=== PATIENT | male | born 1975 ===

== ENCOUNTER 2022-03-14 04:29 | Inpatient (IN) | payer MEDICAID, SELFPAY ==
[2022-03-14] VITALS (10 sets, daily range): BP systolic 122–154; BP diastolic 60–109; PULSE 75–93; RESP 14–20; TEMP 36.5–37; O2SAT 94–99; BMI 27.8
--- NOTE | ~2022-03-14 | CT_ITS ---
EXAMINATION: CT ABDOMEN AND PELVIS WITHOUT CONTRAST CLINICAL INFORMATION: Left flank pain COMPARISON: None TECHNIQUE: Multidetector volumetric imaging was performed from the superior aspect of the liver through the pubic symphysis. Sagittal and coronal reformatted images were obtained on the technologist's workstation. This CT examination was performed using dose optimization techniques as appropriate, variously including the following: *Automated exposure control *Adjustment of mA and/or kV according to patient size (this includes techniques or standardized protocols for targeted exams where dose is matched to indication/reason for exam; i.e. extremities or head) *Use of iterative reconstruction technique DLP: 587 mGy-cm FINDINGS: LUNG BASES: The visualized lung bases are unremarkable. LIVER, GALLBLADDER, AND BILIARY TREE: The liver is normal in size, shape, and attenuation. No focal hepatic lesion or biliary ductal dilatation is present. Stone in the gallbladder lumen. No wall thickening or pericholecystic fluid. PANCREAS: Unremarkable. SPLEEN: Unremarkable. ADRENAL GLANDS: Unremarkable. KIDNEYS AND URETERS: The kidneys are normal in size, shape, and attenuation. Mild left hydroureteronephrosis. There is a 0.3 cm calculus in the distal ureter approximately 2 cm proximal to the ureterovesicular junction. No additional renal calculi. No right hydronephrosis. BLADDER: Unremarkable. GASTROINTESTINAL TRACT: The small and large bowel are unremarkable. The appendix is unremarkable. ABDOMINAL WALL: No significant hernia is appreciated. LYMPH NODES: Normal. VASCULAR: Unremarkable. PELVIC VISCERA: The prostate and seminal vesicles are unremarkable. OSSEOUS STRUCTURES: No acute or suspicious osseous abnormality. Mild degenerative changes of the hips and spine. CT/CT abdomen pelvis wo con IMPRESSION: Mild left hydroureteronephrosis with a 0.3 cm obstructing distal ureteral calculus. Cholelithiasis. Fleischner guidelines were followed.
[2022-03-14 05:04] LABS: Basophils Absolute Auto 0.1 X10*3/uL (0.0-0.2); Basophils Percent Auto 0.6 % (0-2); Eosinophils Absolute Auto 0.3 X10*3/uL (0.0-0.4); Eosinophils Percent Auto 3.1 % (0-4); Hematocrit 41.7 % (42.0-52.0); Hemoglobin 14.3 g/dl (14.0-18.0); Imm Gran Abs Auto 0.02 X10*3/uL (0.00-0.03); Imm Gran Pct Auto 0.2 % (0.0-0.4); Lymphocytes Absolute Auto 2.7 X10*3/uL (1.2-4.9); Lymphocytes Percent Auto 32.4 % (20-40); MANUAL DIFF FLAG NO; Mean Corpuscular HGB Conc 34.3 g/dl (31.0-36.0); Mean Corpuscular Hemoglobin 28.8 pg (27.0-33.0); Mean Corpuscular Volume 83.9 fL (80.0-98.0); Mean Platelet Volume 8.6 fL (9.4-12.4); Monocytes Absolute Auto 0.6 X10*3/uL (0.1-1.2); Neutrophils Absolute Auto 4.7 x10*3/uL (2.0-8.3); Neutrophils Percent Auto 56.7 % (45-73); Platelet Count 277 X10*3/uL (160-400); Red Blood Count 4.97 X10*6/uL (4.60-5.80); White Blood Count 8.3 X10*3/uL (4.8-10.8)
--- NOTE | 2022-03-14 05:07 | ED_ITS ---
HPI - General Adult General Chief complaint: Back Pain/Injury Stated complaint: back pain Time Seen by Provider: 03/14/22 05:03 Source: patient and EMS Mode of arrival: EMS Limitations: no limitations History of Present Illness HPI narrative: Patient comes to the emergency room complaining of left flank pain for 2 hours. Patient states it woke him up. Patient is very sharp radiating towards the groin area. Patient complaining of nausea and vomiting. Patient has had kidney stones in the past. Patient denies hematuria or dysuria, no fever chills, no diarrhea. Related Data Allergies Allergy/AdvReac Type Severity Reaction Status Date / Time No Known Allergies Allergy Verified 03/14/22 05:06 Review of Systems Review of Systems: Constitutional : No Weight loss, No Fever, No Chills, No Night Sweats, No Fatigue, No Malaise ENT/Mouth : No Hearing loss, No Ear Pain, No Nasal Congestion, No Sinus Pain, No Hoarseness, No sore throat, No Rhinorrhea, No Swallowing Difficulty Eyes: No Eye Pain, No Swelling, No Redness, No Foreign Body, No Discharge, No Vision Changes Cardiovascular : No Chest Pain, No SOB, No Dyspnea on Exertion, No Orthopnea, No Edema, No Palpitations Respiratory : No Cough, No Sputum, No Wheezing, No Smoke Exposure, No Dyspnea Gastrointestinal : Complaining of nausea and vomiting, No Diarrhea, No Constipation, No abdominal Pain, No Hematochezia, No Melena Genitourinary : No Dysuria, No Urinary Frequency, No Hematuria, No Urinary Incontinence, No Urgency, complaining of sharp left Flank Pain, No Urinary Flow Changes, No Hesitancy Musculoskeletal : No joint pain, No Myalgias, No Joint Swelling Skin : No Skin Lesions, No rash Neuro : No Weakness, No Numbness, No Paresthesias, No Loss of Consciousness, No Dizziness, No Headache Psych : No Anxiety/Panic, No Depression, No SI/HI/AH/VH, No Social Issues, Heme/Lymph: No Bruising, No Bleeding,No Lymphadenopathy Endocrine : No Polyuria, No Polydipsia, No Temperature Intolerance [facility] Past Medical History Medical History (Updated 03/14/22 @ 07:12 by Chantale Madrid MD) Kidney stones Social History Social History Alcohol intake: never Patient Tobacco Use Status: Never used Tobacco Use of substances other than those prescribed or required for medical reasons: Yes Substance Use Type: Marijuana Substance Use Frequency: Occasionally Advance Directives: No Physical Exam ED Vital Signs: Vital Signs - 24 hr 03/14/22 04:45 03/14/22 05:08 03/14/22 05:40 Temperature Pulse Rate 83 84 Respiratory Rate 16 16 20 Blood Pressure 127/109 H 147/95 H Pulse Oximetry 96 97 03/14/22 06:21 03/14/22 06:39 03/14/22 06:51 Temperature 98.6 F Pulse Rate 79 93 Respiratory Rate 15 16 14 Blood Pressure 122/60 140/82 H Pulse Oximetry 95 99 BMI result Body Mass Index 27.8 Const Other: Appearance: Alert. Oriented X3. Looks very uncomfortable, diaphoretic Eyes: Pupils equal, round and reactive to light. ENT: Pharynx normal. Neck: Normal inspection. Neck supple. No lymph nodes noted. No crepitus CVS: Normal heart rate and rhythm. Pulses normal. Normal S1 and S2 Respiratory: No respiratory distress. Breath sounds normal. No Wheezing. No rales Abdomen: Soft and nontender. No rigidity. No distention. Back: Left flank pain, positive CVA Skin: Skin warm and dry. Diaphoretic. Normal skin turgor. Extremities: No lower extremity edema. No Lacerations. No Rash Neuro: Oriented X 3. No motor deficit. No sensory deficit. Moving all extremities. No slurred speech. CN 2 through 12 grossly intact Psych: calm, cooperative, normal affect Course Course Course Narrative: Labs and imaging pending. Patient likely passing a kidney stone. Patient given IV fluids, ketorolac and Zofran. Patient has had additionally a dose of morphine, 2 of Dilaudid. 2 L of fluid. Patient is still in significant pain. I discussed the patient with Dr. Cook, who recommends to have medicine admit the patient and he will consult. At this time, the urinalysis is pending pending, sign-out given to Dr. Barajas Medical Decision Making Lab Data Result diagrams: 03/14/22 06:04 03/14/22 06:04 Labs: Lab Results 03/14/22 03/14/22 03/14/22 Range/Units 04:56 04:56 06:04 WBC 8.3 10.4 (4.8-10.8) X10*3/uL RBC 4.97 4.77 (4.60-5.80) X10*6/uL Hgb 14.3 13.8 L (14.0-18.0) g/dl Hct 41.7 L 40.2 L (42.0-52.0) % MCV 83.9 84.3 (80.0-98.0) fL MCH 28.8 28.9 (27.0-33.0) pg MCHC 34.3 34.3 (31.0-36.0) g/dl RDW 12.0 11.9 (11.0-16.0) % Plt Count 277 265 (160-400) X10*3/uL MPV 8.6 L 8.6 L (9.4-12.4) fL Immature Gran % (Auto) 0.2 0.3 (0.0-0.4) % Neut % (Auto) 56.7 78.5 H (45-73) % Lymph % (Auto) 32.4 15.0 L (20-40) % [place] % (Auto) 7.0 4.8 (2-11) % Eos % (Auto) 3.1 1.0 (0-4) % Baso % (Auto) 0.6 0.4 (0-2) % Lymph # (Auto) 2.7 1.6 (1.2-4.9) X10*3/uL [place] # (Auto) 0.6 0.5 (0.1-1.2) X10*3/uL Eos # (Auto) 0.3 0.1 (0.0-0.4) X10*3/uL Baso # (Auto) 0.1 0.0 (0.0-0.2) X10*3/uL Abs Immat Gran (auto) 0.02 0.03 (0.00-0.03) X10*3/uL Absolute Neuts (auto) 4.7 8.2 (2.0-8.3) x10*3/uL Absolute Nucleated RBC 0.000 0.000 (0.0-0.012) X10*3/uL Nucleated RBC % (auto) 0.0 0.0 (0.0-0.2) /100WBC Sodium 140 (135-145) mmol/L Potassium 3.8 (3.3-5.1) mmol/L Chloride 106 (96-108) mmol/L Carbon Dioxide 27 (22-29) mmol/L Anion Gap 11 L (12-20) BUN 20 H (9-16) mg/dL Creatinine 1.30 (0.5-1.4) mg/dL Estim Creat Clear Calc 80.0 Estimated GFR 59 Random Glucose 114 (60-115) mg/dL Calcium 9.2 (8.4-10.2) mg/dL Total Bilirubin 0.3 (0.0-1.0) mg/dL Direct Bilirubin (0.0-0.5) mg/dL AST 21 (5-37) U/L ALT 35 (0-40) U/L Alkaline Phosphatase 73 (39-117) U/L Total Protein 6.8 (6.5-8.0) g/dL Albumin 4.4 (3.5-5.0) g/dL 03/14/22 Range/Units 06:04 WBC (4.8-10.8) X10*3/uL RBC (4.60-5.80) X10*6/uL Hgb (14.0-18.0) g/dl Hct (42.0-52.0) % MCV (80.0-98.0) fL MCH (27.0-33.0) pg MCHC (31.0-36.0) g/dl RDW (11.0-16.0) % Plt Count (160-400) X10*3/uL MPV (9.4-12.4) fL Immature Gran % (Auto) (0.0-0.4) % Neut % (Auto) (45-73) % Lymph % (Auto) (20-40) % [place] % (Auto) (2-11) % Eos % (Auto) (0-4) % Baso % (Auto) (0-2) % Lymph # (Auto) (1.2-4.9) X10*3/uL [place] # (Auto) (0.1-1.2) X10*3/uL Eos # (Auto) (0.0-0.4) X10*3/uL Baso # (Auto) (0.0-0.2) X10*3/uL Abs Immat Gran (auto) (0.00-0.03) X10*3/uL Absolute Neuts (auto) (2.0-8.3) x10*3/uL Absolute Nucleated RBC (0.0-0.012) X10*3/uL Nucleated RBC % (auto) (0.0-0.2) /100WBC Sodium 140 (135-145) mmol/L Potassium 4.4 (3.3-5.1) mmol/L Chloride 107 (96-108) mmol/L Carbon Dioxide 27 (22-29) mmol/L Anion Gap 10 L (12-20) BUN 20 H (9-16) mg/dL Creatinine 1.27 (0.5-1.4) mg/dL Estim Creat Clear Calc 81.9 Estimated GFR > 60 Random Glucose 124 H (60-115) mg/dL Calcium 8.9 (8.4-10.2) mg/dL Total Bilirubin 0.3 (0.0-1.0) mg/dL Direct Bilirubin 0.2 (0.0-0.5) mg/dL AST 19 (5-37) U/L ALT 32 (0-40) U/L Alkaline Phosphatase 68 (39-117) U/L Total Protein 6.4 L (6.5-8.0) g/dL Albumin 4.2 (3.5-5.0) g/dL Discharge Plan Discharge Clinical Impression: Kidney stones Patient Disposition: Admitted As Inpatient
[2022-03-14 05:31] LABS: Alanine Aminotransferase 35 U/L (0-40); Albumin Level 4.4 g/dL (3.5-5.0); Alkaline Phosphatase 73 U/L (39-117); Anion Gap 11 (12-20); Aspartate Amino Transferase 21 U/L (5-37); Bilirubin Total 0.3 mg/dL (0.0-1.0); Blood Urea Nitrogen 20 mg/dL (9-16); Calcium 9.2 mg/dL (8.4-10.2); Carbon Dioxide 27 mmol/L (22-29); Chloride 106 mmol/L (96-108); Estimated Glomerular Filt Rate 59; Glucose Random 114 mg/dL (60-115); Potassium 3.8 mmol/L (3.3-5.1); Sodium 140 mmol/L (135-145); Total Protein 6.8 g/dL (6.5-8.0)
[2022-03-14] MEDS: Ketorolac Tromethamine 30 MG/ML VIAL IVPUSH (05:40)
[2022-03-14] MEDS: Morphine Sulfate 4 MG/ML CARTRIDGE IVPUSH (05:40)
[2022-03-14] MEDS: ondansetron HCL 4 MG/2 ML VIAL IVPUSH ×2 (05:41→18:50)
[2022-03-14] MEDS: 0.9 % Sodium Chloride 1,000 ML 999 ML IVCONT ×2 (05:41→07:27)
[2022-03-14 06:08] LABS: Basophils Percent Auto 0.4 % (0-2); Eosinophils Absolute Auto 0.1 X10*3/uL (0.0-0.4); Hematocrit 40.2 % (42.0-52.0); Hemoglobin 13.8 g/dl (14.0-18.0); Imm Gran Abs Auto 0.03 X10*3/uL (0.00-0.03); Imm Gran Pct Auto 0.3 % (0.0-0.4); Lymphocytes Absolute Auto 1.6 X10*3/uL (1.2-4.9); MANUAL DIFF FLAG NO; Mean Corpuscular HGB Conc 34.3 g/dl (31.0-36.0); Mean Corpuscular Hemoglobin 28.9 pg (27.0-33.0); Mean Corpuscular Volume 84.3 fL (80.0-98.0); Mean Platelet Volume 8.6 fL (9.4-12.4); Monocytes Absolute Auto 0.5 X10*3/uL (0.1-1.2); Monocytes Percent Auto 4.8 % (2-11); Neutrophils Absolute Auto 8.2 x10*3/uL (2.0-8.3); Neutrophils Percent Auto 78.5 % (45-73); Platelet Count 265 X10*3/uL (160-400); Red Blood Count 4.77 X10*6/uL (4.60-5.80); Red Cell Distribution Width 11.9 % (11.0-16.0); White Blood Count 10.4 X10*3/uL (4.8-10.8)
[2022-03-14] MEDS: Prochlorperazine Edisylate 10 MG/2 ML VIAL IVPUSH (06:21)
[2022-03-14] MEDS: HYDROmorphone HCl 1 MG/ML SYRINGE IVPUSH ×5 (06:21→23:10)
[2022-03-14 06:28] LABS: Alanine Aminotransferase 32 U/L (0-40); Albumin Level 4.2 g/dL (3.5-5.0); Alkaline Phosphatase 68 U/L (39-117); Anion Gap 10 (12-20); Aspartate Amino Transferase 19 U/L (5-37); Bilirubin Direct 0.2 mg/dL (0.0-0.5); Bilirubin Total 0.3 mg/dL (0.0-1.0); Blood Urea Nitrogen 20 mg/dL (9-16); Calcium 8.9 mg/dL (8.4-10.2); Carbon Dioxide 27 mmol/L (22-29); Chloride 107 mmol/L (96-108); Creatinine Clr Calc Pharmacy 81.9; Estimated Glomerular Filt Rate > 60; Glucose Random 124 mg/dL (60-115); Potassium 4.4 mmol/L (3.3-5.1); Sodium 140 mmol/L (135-145); Total Protein 6.4 g/dL (6.5-8.0)
[2022-03-14 08:19] LABS: Appearance Urine CLEAR; Color Urine STRAW; Glucose Urine UA NEG (NEG); Leukocyte Esterase Urine NEG (NEG); Nitrite Urine NEG (NEG); Specific Gravity - Urine 1.025 (1.005-1.025); UACC Culture Trigger NO; Urine Blood 1+ (NEG); Urine Ketones NEG (NEG); Urine Protein NEG (NEG-TRACE)
[2022-03-14 08:27] LABS: Squamous Epithelial Cell Urine TRACE /LPF
[2022-03-14 08:29] LABS: RBC Urine 0-2 /HPF (0); WBC Urine 0-2 /HPF (0-4)
[2022-03-14 09:20] LABS: COVID-19 Test Negative (Negative)
--- NOTE | 2022-03-14 09:35 | P.HPHOSP_ITS ---
History of Present Illness Date of Service: 03/14/22 Chief Complaint: flank pain This is a 46 year old male who endorses no significant PMH, presents to the ED with complaints of sudden onset L flank pain which began on the night prior to arrival. He reports, that his pain woke him up from sleep. He reports 1 prior episode of kidney stones for which he did not seek medical attention. He reports that it passed on its own. He reports that his pain during this epsidoe is significantly worse. Rates it as a 10/10 and down to 6-7/10 after analgesics. He denies any hematuria. Denies any dysuria/frequency/urgency. Denies any fevers or chills. No FH is renal stones. Work in the ED showed a 3mm obstructing stone at the disal uretral calculus causing mild L hydro. He was given 4 rounds of IV analgesics (opioid + non- opioid) and a L of IVF + 2 rounds of IV anti-emetics. His pain improved, but did not resolve. Case was d/w Urology who recommended admission to medicine. Review of Systems Review of Systems: negative except [facility] Medical History Kidney stones Family History (Updated 03/14/22 @ 09:42 by Vel Maldonado MD) Mother Colon cancer Surgical History (Updated 03/14/22 @ 09:43 by Vel Maldonado MD) History of surgery on lower extremity Social History Alcohol intake: never Patient Tobacco Use Status: Never used Tobacco Use of substances other than those prescribed or required for medical reasons: Yes Substance Use Type: Marijuana Substance Use Frequency: Occasionally Advance Directives: No Meds Allergies Allergy/AdvReac Type Severity Reaction Status Date / Time No Known Allergies Allergy Verified 03/14/22 05:06 Active Medications: Current Medications Acetaminophen (Acetaminophen 325 Mg Tablet) 650 mg PO Q6H PRN PRN Reason: Pain, Mild (Pain Scale 1-3) Hydromorphone HCl (Hydromorphone Hcl 1 Mg/Ml Syringe) 1 mg IVPUSH Q4H PRN; Protocol PRN Reason: Pain, Severe (Pain Scale 7-10) Dextrose/Sodium Chloride (D5ns) 1,000 mls @ 100 mls/hr IVCONT .Q10H [facility] Ondansetron HCl (Ondansetron Hcl 4 Mg/2 Ml Vial) 4 mg IVPUSH Q8H PRN PRN Reason: Nausea and Vomiting Pharmacy Consult (Consult Rx Perform Med Rec) 1 each MISCELLANE ONCE PRN PRN Reason: Consult order Sodium Chloride (0.9 % Sodium Chloride Flush 3 Ml Syringe) 3 ml IVFLUSH QSHIFT [facility] Tamsulosin HCl (Tamsulosin Hcl 0.4 Mg Capsule) 0.8 mg PO ONCE ONE Stop: 03/14/22 09:33 Physical Exam Vital Signs and Narrative: Vital Signs: Last Vital Signs Temp 97.8 F 03/14/22 08:24 Pulse 75 03/14/22 08:24 Resp 17 03/14/22 08:24 BP 134/63 03/14/22 08:24 Pulse Ox 94 03/14/22 08:24 BMI result Body Mass Index 27.8 Const: Other: Constitutional - Awake and Alert, in mild pain Eyes - PERRLA, EOMI Cardiovascular - S1S2, RRR, No edema Respiratory - Normal lung expansion, Normal respiratory effort, No respiratory distress, CTA bilaterally Gastrointestinal - NT / ND; +BS; No rebound or guarding - L CVA TTP Extremities - no calf tenderness bilaterally, no swelling Musculoskeletal - Normal inspection, normal ROM Skin - Warm/Dry Neurological - Alert & oriented x3, No focal deficit Psychological - Appropriate affect Results Labs CBC and Chem 7: 03/14/22 06:04 03/14/22 06:04 Labs: Laboratory Results - last 24 hr 03/14/22 03/14/22 03/14/22 04:56 04:56 06:04 MCV 83.9 84.3 MCH 28.8 28.9 MCHC 34.3 34.3 RDW 12.0 11.9 Plt Count 277 265 MPV 8.6 L 8.6 L Immature Gran % (Auto) 0.2 0.3 Neut % (Auto) 56.7 78.5 H Lymph % (Auto) 32.4 15.0 L [place] % (Auto) 7.0 4.8 Eos % (Auto) 3.1 1.0 Baso % (Auto) 0.6 0.4 Lymph # (Auto) 2.7 1.6 [place] # (Auto) 0.6 0.5 Eos # (Auto) 0.3 0.1 Baso # (Auto) 0.1 0.0 Abs Immat Gran (auto) 0.02 0.03 Absolute Neuts (auto) 4.7 8.2 Absolute Nucleated RBC 0.000 0.000 Nucleated RBC % (auto) 0.0 0.0 Anion Gap 11 L Estim Creat Clear Calc 80.0 Estimated GFR 59 Random Glucose 114 Calcium 9.2 Total Bilirubin 0.3 Direct Bilirubin AST 21 ALT 35 Alkaline Phosphatase 73 Total Protein 6.8 Albumin 4.4 Urine Color Urine Appearance Urine pH Ur Specific [place] Urine Protein Urine Glucose (UA) Urine Ketones Urine Blood Urine Nitrite Ur Leukocyte Esterase Urine RBC Urine WBC Ur Squamous Epith Cells Urine Bacteria COVID-19 (PHAN) COVID-19 Clin Com 03/14/22 03/14/22 03/14/22 06:04 08:14 08:44 MCV MCH MCHC RDW Plt Count MPV Immature Gran % (Auto) Neut % (Auto) Lymph % (Auto) [place] % (Auto) Eos % (Auto) Baso % (Auto) Lymph # (Auto) [place] # (Auto) Eos # (Auto) Baso # (Auto) Abs Immat Gran (auto) Absolute Neuts (auto) Absolute Nucleated RBC Nucleated RBC % (auto) Anion Gap 10 L Estim Creat Clear Calc 81.9 Estimated GFR > 60 Random Glucose 124 H Calcium 8.9 Total Bilirubin 0.3 Direct Bilirubin 0.2 AST 19 ALT 32 Alkaline Phosphatase 68 Total Protein 6.4 L Albumin 4.2 Urine Color STRAW Urine Appearance CLEAR Urine pH 6.0 Ur Specific [place] 1.025 Urine Protein NEG Urine Glucose (UA) NEG Urine Ketones NEG Urine Blood 1+ H Urine Nitrite NEG Ur Leukocyte Esterase NEG Urine RBC 0-2 Urine WBC 0-2 Ur Squamous Epith Cells TRACE Urine Bacteria NONE COVID-19 (PHAN) Negative COVID-19 Clin Com See Note Imaging Radiologist's Impressions: Impressions Abdomen/Pelvis CT 03/14/22 05:49 IMPRESSION: Mild left hydroureteronephrosis with a 0.3 cm obstructing distal ureteral calculus. Cholelithiasis. Fleischner guidelines were followed. Assessment and Plan (1) Kidney stones: Status: Acute Plan This is a 46 yo M with no significant PMH (with the exeption of 1 prior episode of nephrolithiasis) who presents to the ED with sudden onset L Flank pain and is found to have a 3mm obstructing stone. He has not attained adequate pain control and hence will be admitted for further treatment. 1. L Nephrolithiasis, 3 mm causing mild obstruction/hydronephrosis but given size, may pass on its own will involve urology in case stone retrieval procedure is needed; will keep NPO after MN Give a dose of flomax now IV dilaudid q4 hours; transition to oral analgesics as soon as pain is adequately controlled Full Code DVT pptx, low risk -- early ambulation Quality Stroke Does the patient have a stroke diagnosis?: No VTE Prior VTE?: No VTE Risk Level:: Medical - low VTE Device Contraindication: Treatment Not Indicated VTE Drug Contraindication: Treatment Not Indicated
[2022-03-14] MEDS: Tamsulosin HCL 0.4 MG CAPSULE 0.8 MG PO (10:45)
[2022-03-14] MEDS: Lactated Ringers 1,000 ML 100 ML IVCONT ×2 (10:45→19:32)
--- NOTE | 2022-03-14 11:41 | PC.NURSE ---
rn to rn report given to javier hartman aware of plan of care for transfer to overflow unit.
--- NOTE | 2022-03-14 12:21 | PC.NURSE ---
RN assumed care at 12pm in over flow unit. Pt alert and oriented x4, calm and cooperative. Pt states 5/10 pain after receiving pain meds, states pain is tolerable . Denies nausea. Pt ambulated from stretcher to hospital bed and had steady gait. IV intact running LR at 100mls/hr now. Pt resting in hospital bed talking on the phone now.
[2022-03-14] MEDS: Acetaminophen 325 MG TABLET 650 MG PO (14:22)
[2022-03-14] MEDS: 0.9 % Sodium Chloride Flush 3 ML SYRINGE IVFLUSH (23:10)
[2022-03-15] VITALS: BP 143/81; PULSE 75; RESP 18; TEMP 36.8; O2SAT 95
[2022-03-15] MEDS: ondansetron HCL 4 MG/2 ML VIAL IVPUSH ×3 (04:09→20:42)
[2022-03-15] MEDS: HYDROmorphone HCl 1 MG/ML SYRINGE IVPUSH ×6 (04:10→23:10)
[2022-03-15 07:27] VITALS: BP 135/74; PULSE 76; RESP 20; TEMP 37.1; O2SAT 96
[2022-03-15 08:03] LABS: Anion Gap 9 (12-20); Blood Urea Nitrogen 16 mg/dL (9-16); Calcium 8.7 mg/dL (8.4-10.2); Carbon Dioxide 26 mmol/L (22-29); Chloride 107 mmol/L (96-108); Estimated Glomerular Filt Rate 46; Glucose Random 111 mg/dL (60-115); Potassium 4.2 mmol/L (3.3-5.1); Sodium 138 mmol/L (135-145)
[2022-03-15] MEDS: Lactated Ringers 1,000 ML 100 ML IVCONT ×2 (09:32→20:39)
--- NOTE | 2022-03-15 10:02 | MHC.CM.PN ---
CM ATTEMPTED TO MEET WITH PT WHO WAS WITH HOSPITALIST LEXY TO REVISIT
[2022-03-15] MEDS: Acetaminophen 325 MG TABLET 650 MG PO ×2 (12:49→22:16)
--- NOTE | 2022-03-15 13:02 | HO.PM.IMPN ---
Subjective Subjective Date of Service: 03/15/22 Interval History: cc: garland tflank pain interval history:stil present Cardiovascular Cardiovascular: Reports no additional cardiovascular complaints Respiratory Respiratory: Reports no additional respiratory complaints Physical Exam Vital Signs: Vital Signs: Last Vital Signs Temp 98.7 F 03/15/22 07:27 Pulse 76 03/15/22 07:27 Resp 20 03/15/22 07:27 BP 135/74 03/15/22 07:27 Pulse Ox 96 03/15/22 07:27 BMI result Body Mass Index 27.8 General: AO X 3, in pain Resp: CTA bilateral, no accessory muscles used CVS: S1,S2,RRR GI: soft, non tender, non distended Neuro: motor grossly intact, alert Psych: appropriate affect, appropriate insight Objective Data Active Medications Acetaminophen (Acetaminophen 325 Mg Tablet) 650 mg PO Q6H PRN PRN Reason: Pain, Mild (Pain Scale 1-3) Last Admin: 03/15/22 12:49 Dose: 650 mg Documented by: PAULIE Hydromorphone HCl (Hydromorphone Hcl 1 Mg/Ml Syringe) 1 mg IVPUSH Q4H PRN; Protocol PRN Reason: Pain, Severe (Pain Scale 7-10) Last Admin: 03/15/22 12:42 Dose: 1 mg Documented by: DEBI Lactated Ringer's (Lr) 1,000 mls @ 100 mls/hr IVCONT .Q10H [facility] Last Admin: 03/15/22 09:32 Dose: 100 mls/hr Documented by: PAULIE Ondansetron HCl (Ondansetron Hcl 4 Mg/2 Ml Vial) 4 mg IVPUSH Q8H PRN PRN Reason: Nausea and Vomiting Last Admin: 03/15/22 12:42 Dose: 4 mg Documented by: DEBI Pharmacy Consult (Consult Rx Perform Med Rec) 1 each MISCELLANE ONCE PRN PRN Reason: Consult order Sodium Chloride (0.9 % Sodium Chloride Flush 3 Ml Syringe) 3 ml IVFLUSH QSHIFT [facility] Last Admin: 03/15/22 09:17 Dose: Not Given Documented by: PAULIE Non-Admin Reason: IV Running Labs CBC & Chem 7: 03/14/22 06:04 03/15/22 07:17 Labs: Laboratory Results - last 24 hr 03/15/22 07:17 Anion Gap 9 L Estim Creat Clear Calc 65.0 Estimated GFR 46 Random Glucose 111 Calcium 8.7 Assessment and Plan (1) Kidney stones: Status: Acute Plan 46M with left flank pain left hydronephrosis due to 0.3cm stone should pass with ivf, plan for procedure tomororw if doesnt pain control reason for continued hospitalization: requriing ivf and pain control Quality Stroke Does the patient have a stroke diagnosis?: No VTE Prior VTE?: No VTE Risk Level:: Medical - low VTE Device Contraindication: Treatment Not Indicated VTE Drug Contraindication: Treatment Not Indicated
--- NOTE | 2022-03-15 15:03 | PC.NURSE ---
Patient alert and oriented x3, VSS. Patient c/o 10/10 L flank pain throughout shift with associated nausea. Given Dilaudid and zofran per EMAR, with some relief. Patient aware of plan of care and verbalized understanding. Lung sounds clear, +bowel sounds. All needs met at this time.
[2022-03-15 16:29] VITALS: BP 147/77; PULSE 75; RESP 18; TEMP 37.1; O2SAT 97
--- NOTE | 2022-03-15 17:38 | PC.NURSE ---
patient had c/o nausea when he gets the pain medication, his zofran is q8h and he was unable to have additional zofran, dr. lambert was notified and asked if we could change the zofran order to q4h or to obtain an additional medication to alternate with. Dr. Lambert asked we take a telephone order for 5mg reglan q8h iv prn. will add this as a telephone order.
[2022-03-15] MEDS: Metoclopramide HCl 10 MG/2 ML VIAL 5 MG IVPUSH ×2 (18:07→23:11)
[2022-03-15] MEDS: Fluticasone Propionate Nasal 16 GM SPRAY 1 SPRAY NOSTRIL-B (20:38)
[2022-03-15 22:19] VITALS: BP 154/86; PULSE 86; RESP 16; TEMP 37.4
[2022-03-15] MEDS: 0.9 % Sodium Chloride Flush 3 ML SYRINGE IVFLUSH (23:11)
[2022-03-15] MEDS: Bismuth Subsalicylate Liquid 524 MG/30 ML ORAL.SUSP 262 MG PO (23:11)
[2022-03-15 23:49] VITALS: BP 129/69; PULSE 80; RESP 14; TEMP 36.9; O2SAT 95
[2022-03-16] VITALS (10 sets, daily range): BP systolic 129–182; BP diastolic 67–95; PULSE 62–102; RESP 14–17; TEMP 36.5–37.1; O2SAT 94–99; BMI 27.8
[2022-03-16] MEDS: HYDROmorphone HCl 1 MG/ML SYRINGE IVPUSH (05:03)
[2022-03-16] MEDS: ondansetron HCL 4 MG/2 ML VIAL IVPUSH (05:03)
[2022-03-16] MEDS: Lactated Ringers 1,000 ML 100 ML IVCONT (05:04)
[2022-03-16] MEDS: Acetaminophen 325 MG TABLET 650 MG PO ×2 (06:32→14:57)
[2022-03-16 07:59] LABS: Hematocrit 37.8 % (42.0-52.0); Hemoglobin 12.8 g/dl (14.0-18.0); Mean Corpuscular HGB Conc 33.9 g/dl (31.0-36.0); Mean Corpuscular Hemoglobin 28.8 pg (27.0-33.0); Mean Corpuscular Volume 84.9 fL (80.0-98.0); Mean Platelet Volume 8.9 fL (9.4-12.4); Platelet Count 244 X10*3/uL (160-400); Red Blood Count 4.45 X10*6/uL (4.60-5.80); Red Cell Distribution Width 11.9 % (11.0-16.0); White Blood Count 8.8 X10*3/uL (4.8-10.8)
[2022-03-16] MEDS: HYDROmorphone HCl 1 MG/ML SYRINGE 1.5 MG IVPUSH ×3 (08:05→12:11)
[2022-03-16 08:12] LABS: Anion Gap 12 (12-20); Blood Urea Nitrogen 15 mg/dL (9-16); Calcium 8.8 mg/dL (8.4-10.2); Carbon Dioxide 28 mmol/L (22-29); Chloride 103 mmol/L (96-108); Creatinine Clr Calc Pharmacy 66.3; Estimated Glomerular Filt Rate 47; Glucose Fasting 91 mg/dL (60-99); Potassium 4.7 mmol/L (3.3-5.1); Sodium 138 mmol/L (135-145)
--- NOTE | 2022-03-16 09:14 | MHC.CM.PN ---
PATIENT LIVES WITH HE IS FULLY INDEPENDENT NO DME OR VNA SERVICES HE HAS NOT BEEN VACCINATED AGAINST COVID-19 HE IS EXPECTED FOR SURGICAL INTERVENTION TODAY AND PLAN WILL BE HOME - SELF CARE [facility]EL Hwang, IN ROOM AND WILL PROVIDE TRANSPORT HOME IF NEEDED. LARA 03/16 IN CHART
--- NOTE | 2022-03-16 10:41 | P.PNIM_ITS ---
Subjective Subjective Date of Service: 03/16/22 Interval History: cc: flank pain interval history:unchanged Cardiovascular Cardiovascular: Reports no additional cardiovascular complaints Respiratory Respiratory: Reports no additional respiratory complaints Physical Exam Vital Signs: Vital Signs: Last Vital Signs Temp 98.0 F 03/16/22 08:09 Pulse 84 03/16/22 08:09 Resp 16 03/16/22 08:09 BP 169/89 H 03/16/22 08:09 Pulse Ox 98 03/16/22 08:09 BMI result Body Mass Index 27.8 General: AO X 3, in pain Resp: CTA bilateral, no accessory muscles used CVS: S1,S2,RRR GI: soft, non tender, non distended Neuro: motor grossly intact, alert Psych: appropriate affect, appropriate insight Objective Data Active Medications Acetaminophen (Acetaminophen 325 Mg Tablet) 650 mg PO Q6H PRN PRN Reason: Pain, Mild (Pain Scale 1-3) Last Admin: 03/16/22 06:32 Dose: 650 mg Documented by: ROMEO Fluticasone Propionate (Fluticasone Propionate Nasal 16 Gm [place]) 1 spray NOSTRIL-B BID [facility] Last Admin: 03/16/22 08:08 Dose: Not Given Documented by: NELLA Non-Admin Reason: Med Not Available Hydromorphone HCl (Hydromorphone Hcl 1 Mg/Ml Syringe) 1.5 mg IVPUSH Q2H PRN; Protocol PRN Reason: Pain, Severe (Pain Scale 7-10) Last Admin: 03/16/22 09:59 Dose: 1.5 mg Documented by: NELLA Lactated Ringer's (Lr) 1,000 mls @ 100 mls/hr IVCONT .Q10H [facility] Last Admin: 03/16/22 05:04 Dose: 100 mls/hr Documented by: ROMEO Metoclopramide HCl (Metoclopramide Hcl 10 Mg/2 Ml Vial) 5 mg IVPUSH Q8H PRN PRN Reason: Nausea Last Admin: 03/15/22 23:11 Dose: 5 mg Documented by: ROMEO Comments: Dr. Anaya said OK to give early. Ondansetron HCl (Ondansetron Hcl 4 Mg/2 Ml Vial) 4 mg IVPUSH Q8H PRN PRN Reason: Nausea and Vomiting Last Admin: 03/16/22 05:03 Dose: 4 mg Documented by: ROMEO Pharmacy Consult (Consult Rx Perform Med Rec) 1 each MISCELLANE ONCE PRN PRN Reason: Consult order Sodium Chloride (0.9 % Sodium Chloride Flush 3 Ml Syringe) 3 ml IVFLUSH QSHIFT [facility] Last Admin: 03/16/22 06:59 Dose: Not Given Documented by: NELLA Non-Admin Reason: IV Running Labs CBC & Chem 7: 03/16/22 06:53 03/16/22 06:53 Labs: Laboratory Results - last 24 hr 03/16/22 03/16/22 06:53 06:53 MCV 84.9 MCH 28.8 MCHC 33.9 RDW 11.9 Plt Count 244 MPV 8.9 L Absolute Nucleated RBC 0.000 Nucleated RBC % (auto) 0.0 Anion Gap 12 Estim Creat Clear Calc 66.3 Estimated GFR 47 Fasting Glucose 91 Calcium 8.8 Assessment and Plan (1) Kidney stones: Status: Acute Plan 46M with left flank pain left hydronephrosis due to 0.3cm stone did not pass plan for procedure today pain control MARGARITO continue ivf, monitor reason for continued hospitalization: requriing ivf and pain control Quality Stroke Does the patient have a stroke diagnosis?: No VTE Prior VTE?: No VTE Risk Level:: Medical - low VTE Device Contraindication: Treatment Not Indicated VTE Drug Contraindication: Treatment Not Indicated
--- NOTE | 2022-03-16 13:03 | P.CNUR_ITS ---
History of Present Illness Consult details Consult date: 03/15/22 Narrative: Gabriel is a pleasant male Presents to hospital with 1 week history left-sided flank pain Had done yard work at the weekend and was concerned he may have muscular injury Imaging shows 3 mm distal left ureteric stone with mild hydroureteronephrosis Creatinine 1.6 Can manage conservatively and if stone does not pass the next 24-36 hours would recommend intervention Review of Systems Constitutional: Constitutional: Reports as per HPI and Reports no additional constitutional complaints Cardiovascular: Cardiovascular: Reports as per HPI and Reports no additional cardiovascular complaints Respiratory: Respiratory: Reports as per HPI and Reports no additional respiratory complaints Gastrointestinal: Gastrointestinal: Reports as per HPI and Reports no additional gastrointestinal complaints Genitourinary: Genitourinary: Reports as per HPI Musculoskeletal: Musculoskeletal: Reports no additional musculoskeletal complaints and Reports as per HPI Neurologic: Reports system reviewed and no additional complaints, except as documented and Reports as per HPI [facility] Past Medical History Medical History Kidney stones Family History Family History (Updated 03/14/22 @ 09:42 by Vel Maldonado MD) Mother Colon cancer Surgical History Surgical History (Updated 03/14/22 @ 09:43 by Vel Maldonado MD) History of surgery on lower extremity Social History Social History Household Members: Spouse Housing: House Do you presently have visiting nurse or other home services: No Alcohol intake: never Patient Tobacco Use Status: Never used Tobacco Use of substances other than those prescribed or required for medical reasons: Yes Substance Use Type: Marijuana Substance Use Frequency: Occasionally Last Used Substance: Days (ago) Currently Displaying Signs/Symptoms of Drug Intoxication Withdrawal: No Any prior treatment program specific to substance use: No Have you been hit, kicked, punched, or otherwise hurt by someone within the past year? If so, by whom?: No Do you feel safe in your current relationship?: Yes Is there a partner from a previous relationship who is making you feel unsafe now?: No Are you made to feel afraid or neglected: No Advance Directives: No Do you have thoughts of harming others: None Do you have a plan to hurt others: No Plan Recently lost weight without trying: No How much weight loss: Not applicable Eating poorly because of decreased appetite: No Nutrition screen score: 0 Nutrition Risks: No Nutritional Risk Poor oral hygiene: No service: No Current occupational status: employed Meds Allergies Allergy/AdvReac Type Severity Reaction Status Date / Time No Known Allergies Allergy Verified 03/14/22 05:06 Active Medications: Current Medications Acetaminophen (Acetaminophen 325 Mg Tablet) 650 mg PO Q6H PRN PRN Reason: Pain, Mild (Pain Scale 1-3) Last Admin: 03/16/22 06:32 Dose: 650 mg Documented by: Fluticasone Propionate (Fluticasone Propionate Nasal 16 Gm [place]) 1 spray NOSTRIL-B BID [facility] Last Admin: 03/16/22 08:08 Dose: Not Given Documented by: Hydromorphone HCl (Hydromorphone Hcl 1 Mg/Ml Syringe) 1.5 mg IVPUSH Q2H PRN; Protocol PRN Reason: Pain, Severe (Pain Scale 7-10) Last Admin: 03/16/22 12:11 Dose: 1.5 mg Documented by: Lactated Ringer's (Lr) 1,000 mls @ 100 mls/hr IVCONT .Q10H [facility] Last Admin: 03/16/22 05:04 Dose: 100 mls/hr Documented by: Metoclopramide HCl (Metoclopramide Hcl 10 Mg/2 Ml Vial) 5 mg IVPUSH Q8H PRN PRN Reason: Nausea Last Admin: 03/15/22 23:11 Dose: 5 mg Documented by: Ondansetron HCl (Ondansetron Hcl 4 Mg/2 Ml Vial) 4 mg IVPUSH Q8H PRN PRN Reason: Nausea and Vomiting Last Admin: 03/16/22 05:03 Dose: 4 mg Documented by: Pharmacy Consult (Consult Rx Perform Med Rec) 1 each MISCELLANE ONCE PRN PRN Reason: Consult order Sodium Chloride (0.9 % Sodium Chloride Flush 3 Ml Syringe) [address] [facility] Last Admin: 03/16/22 06:59 Dose: Not Given Documented by: Home Medications Medication Instructions Recorded Confirmed Last Taken Type ibuprofen 200 mg tablet (Advil) 400 mg PO Q6H PRN 03/14/22 03/14/22 Unknown History Physical Exam Vital Signs: Vital Signs: Last Vital Signs Temp 98.0 F 03/16/22 08:09 Pulse 84 03/16/22 08:09 Resp 16 03/16/22 08:09 BP 169/89 H 03/16/22 08:09 Pulse Ox 98 03/16/22 08:09 BMI result Body Mass Index 27.8 Const: General: cooperative, healthy appearing, comfortable and no acute distress Orientation/consciousness: patient oriented x3 HEENT: Face and sinus: Yes normal facial exam Mouth: moist mucous membranes Neck: Neck: Yes normal visual inspection, Yes full ROM and Yes trachea midline Chest: Chest palpation & inspection: normal inspection of the chest Resp: Effort & Inspection: normal respiratory effort, able to speak in complete sentences and no respiratory distress GI: Inspection: Yes normal to inspection Back/Spine/Pelvis: Cervical Spine: normal cervical lordosis Thoracic/Lumbar Spine: thoracic and lumbar spine normal to inspection Skin: General skin exam: no rashes or lesions noted Neuro: General: patient oriented x3, tone normal and moves all extremities Extrem: General: Yes normal to inspection and Yes capillary refill normal Results Labs Result diagrams: 03/16/22 06:53 03/16/22 06:53 Labs: Abnormal lab results 03/16/22 03/16/22 Range/Units 06:53 06:53 RBC 4.45 L (4.60-5.80) X10*6/uL Hgb 12.8 L (14.0-18.0) g/dl Hct 37.8 L (42.0-52.0) % MPV 8.9 L (9.4-12.4) fL Creatinine 1.57 H (0.5-1.4) mg/dL Short CBC 03/16/22 Range/Units 06:53 WBC 8.8 (4.8-10.8) X10*3/uL Hgb 12.8 L (14.0-18.0) g/dl Hct 37.8 L (42.0-52.0) % Plt Count 244 (160-400) X10*3/uL BMP 03/16/22 06:53 Sodium 138 Potassium 4.7 Chloride 103 Carbon Dioxide 28 BUN 15 Creatinine 1.57 H Calcium 8.8 Urine 03/14/22 Range/Units 08:14 Urine Color STRAW Urine Appearance CLEAR Urine pH 6.0 (5.0-8.0) Ur Specific [place] 1.025 (1.005-1.025) Urine Protein NEG (NEG-TRACE) MG/DL Urine Glucose (UA) NEG (NEG) MG/DL All other labs normal. Assessment and Plan (1) Kidney stones: Status: Acute Plan Plan for conservative therapy 24-36 hours of observation If pain persists would recommend intervention Procedures Date of Service Date of Service: 03/15/22
--- NOTE | 2022-03-16 13:05 | PM.UROPN ---
Subjective Subjective Date of Service: 03/16/22 Interval history: Persistent left sided pain Does not think he has passed stone Would plan for intervention today Physical Exam Vital Signs: Vital Signs: Last Vital Signs Temp 98.0 F 03/16/22 08:09 Pulse 84 03/16/22 08:09 Resp 16 03/16/22 08:09 BP 169/89 H 03/16/22 08:09 Pulse Ox 98 03/16/22 08:09 BMI result Body Mass Index 27.8 Const: General: cooperative, healthy appearing, comfortable and no acute distress Orientation/consciousness: patient oriented x3 HEENT: Face and sinus: Yes normal facial exam Mouth: moist mucous membranes Neck: Neck: Yes normal visual inspection, Yes full ROM and Yes trachea midline Chest: Chest palpation & inspection: normal inspection of the chest Resp: Effort & Inspection: normal respiratory effort, able to speak in complete sentences and no respiratory distress GI: Inspection: Yes normal to inspection Back/Spine/Pelvis: Cervical Spine: normal cervical lordosis Thoracic/Lumbar Spine: thoracic and lumbar spine normal to inspection Skin: General skin exam: no rashes or lesions noted Neuro: General: patient oriented x3, gait normal, tone normal and moves all extremities Extrem: General: Yes normal to inspection and Yes capillary refill normal Urology Results Labs CBC & Chem 7: 03/16/22 06:53 03/16/22 06:53 Labs: Laboratory Results - last 24 hr 03/16/22 03/16/22 06:53 06:53 WBC 8.8 RBC 4.45 L Hgb 12.8 L Hct 37.8 L MCV 84.9 MCH 28.8 MCHC 33.9 RDW 11.9 Plt Count 244 MPV 8.9 L Absolute Nucleated RBC 0.000 Nucleated RBC % (auto) 0.0 Sodium 138 Potassium 4.7 Chloride 103 Carbon Dioxide 28 Anion Gap 12 BUN 15 Creatinine 1.57 H Estim Creat Clear Calc 66.3 Estimated GFR 47 Fasting Glucose 91 Calcium 8.8 Progress Note: A&P Assessment and plan (1) Kidney stones: Status: Acute Plan Ureteroscopy We discussed the nature of the decision and reasonable alternatives for performing the above surgery. Interventions include chemical dissolution, ESWL, ureteroscopy with laser lithotripsy and stent placement, PCNL. Options such as medical therapy were discussed. The relative uncertainties and benefits related to each alternate procedure were adequately discussed. General surgical risks including, but not limited to, pain, bleeding, infection, myocardial infarction, pulmonary embolus, deep vein thrombosis and cerebrovascular accident which may result in further hospitalization were discussed. Full disclosure of the procedure as well as all major risks, benefits and complications were discussed including but not limited to damage to the urethra, bladder and kidney infection, damage to the ureter, stent migration or malposition, scarring to the renal pelvis, remnant stone fragments, subsequent stone passage with need for secondary procedures. The overall secondary procedure rate is approximately 10-15%. The success rate of the procedure was discussed. Success of the procedure in the short-term does not necessarily guarantee that long-term success will be maintained. Suitable follow up will need to be maintained. The patient showed understanding of discussion and wishes to proceed with - cystoscopy, retrograde, ureteroscopy, possible lithotripsy/stone basketing and stent on the left side - semi rigid ureteroscopy Time Spent With Patient Time: Total time spent is greater than 50% in coordination of care (as documented) at patient's floor/unit and/or counseling patient: Progress Note: Quality Stroke Does the patient have a stroke diagnosis?: No
--- NOTE | 2022-03-16 13:40 | HO.ANESPROP2 ---
[facility] Active Problems Active Problems: All Active Problems (Updated 03/14/22 @ 07:12 by Chantale Madrid MD) Kidney stones (Acute) Past Medical History Medical History Kidney stones Family History Family History (Updated 03/14/22 @ 09:42 by Vel Maldonado MD) Mother Colon cancer Family history of problems with anesthesia: No Surgical History Surgical History (Updated 03/14/22 @ 09:43 by Vel Maldonado MD) History of surgery on lower extremity History of Problems with Anesthesia: No Social History Social History Household Members: Spouse Housing: House Do you presently have visiting nurse or other home services: No Alcohol intake: never Patient Tobacco Use Status: Never used Tobacco Use of substances other than those prescribed or required for medical reasons: Yes Substance Use Type: Marijuana Substance Use Frequency: Occasionally Last Used Substance: Days (ago) Currently Displaying Signs/Symptoms of Drug Intoxication Withdrawal: No Any prior treatment program specific to substance use: No Have you been hit, kicked, punched, or otherwise hurt by someone within the past year? If so, by whom?: No Do you feel safe in your current relationship?: Yes Is there a partner from a previous relationship who is making you feel unsafe now?: No Are you made to feel afraid or neglected: No Advance Directives: No Do you have thoughts of harming others: None Do you have a plan to hurt others: No Plan Recently lost weight without trying: No How much weight loss: Not applicable Eating poorly because of decreased appetite: No Nutrition screen score: 0 Nutrition Risks: No Nutritional Risk Poor oral hygiene: No service: No Current occupational status: employed Meds Allergies Allergy/AdvReac Type Severity Reaction Status Date / Time No Known Allergies Allergy Verified 03/14/22 05:06 Active Medications: Current Medications Acetaminophen (Acetaminophen 325 Mg Tablet) 650 mg PO Q6H PRN PRN Reason: Pain, Mild (Pain Scale 1-3) Last Admin: 03/16/22 06:32 Dose: 650 mg Documented by: Fluticasone Propionate (Fluticasone Propionate Nasal 16 Gm [place]) 1 spray NOSTRIL-B BID [facility] Last Admin: 03/16/22 08:08 Dose: Not Given Documented by: Hydromorphone HCl (Hydromorphone Hcl 1 Mg/Ml Syringe) 1.5 mg IVPUSH Q2H PRN; Protocol PRN Reason: Pain, Severe (Pain Scale 7-10) Last Admin: 03/16/22 12:11 Dose: 1.5 mg Documented by: Lactated Ringer's (Lr) 1,000 mls @ 100 mls/hr IVCONT .Q10H [facility] Last Admin: 03/16/22 05:04 Dose: 100 mls/hr Documented by: Metoclopramide HCl (Metoclopramide Hcl 10 Mg/2 Ml Vial) 5 mg IVPUSH Q8H PRN PRN Reason: Nausea Last Admin: 03/15/22 23:11 Dose: 5 mg Documented by: Ondansetron HCl (Ondansetron Hcl 4 Mg/2 Ml Vial) 4 mg IVPUSH Q8H PRN PRN Reason: Nausea and Vomiting Last Admin: 03/16/22 05:03 Dose: 4 mg Documented by: Pharmacy Consult (Consult Rx Perform Med Rec) 1 each MISCELLANE ONCE PRN PRN Reason: Consult order Sodium Chloride (0.9 % Sodium Chloride Flush 3 Ml Syringe) 3 ml IVFLUSH QSHIFT [facility] Last Admin: 03/16/22 06:59 Dose: Not Given Documented by: Home Medications Medication Instructions Recorded Confirmed Last Taken Type ibuprofen 200 mg tablet (Advil) 400 mg PO Q6H PRN 03/14/22 03/14/22 Unknown History Exam Exam Date and Time: March 16, 2022 1340 Height,Weight and Vital Signs: Height 5 ft 11 in Weight 90.718 kg Last Vital Signs Temp 98.4 F 03/16/22 13:19 Pulse 102 H 03/16/22 13:19 Resp 17 03/16/22 13:19 BP 182/94 H 03/16/22 13:19 Pulse Ox 97 03/16/22 13:19 Pertinent Lab Results Pertinent Lab Results: Laboratory Tests 03/14/22 03/14/22 03/14/22 04:56 04:56 06:04 WBC 8.3 10.4 RBC 4.97 4.77 Hgb 14.3 13.8 L Hct 41.7 L 40.2 L MCV 83.9 84.3 MCH 28.8 28.9 MCHC 34.3 34.3 RDW 12.0 11.9 Plt Count 277 265 MPV 8.6 L 8.6 L Immature Gran % (Auto) 0.2 0.3 Neut % (Auto) 56.7 78.5 H Lymph % (Auto) 32.4 15.0 L [place] % (Auto) 7.0 4.8 Eos % (Auto) 3.1 1.0 Baso % (Auto) 0.6 0.4 Lymph # (Auto) 2.7 1.6 [place] # (Auto) 0.6 0.5 Eos # (Auto) 0.3 0.1 Baso # (Auto) 0.1 0.0 Abs Immat Gran (auto) 0.02 0.03 Absolute Neuts (auto) 4.7 8.2 Absolute Nucleated RBC 0.000 0.000 Nucleated RBC % (auto) 0.0 0.0 Sodium 140 Potassium 3.8 Chloride 106 Carbon Dioxide 27 Anion Gap 11 L BUN 20 H Creatinine 1.30 Estim Creat Clear Calc 80.0 Estimated GFR 59 Random Glucose 114 Fasting Glucose Calcium 9.2 Total Bilirubin 0.3 Direct Bilirubin AST 21 ALT 35 Alkaline Phosphatase 73 Total Protein 6.8 Albumin 4.4 Urine Color Urine Appearance Urine pH Ur Specific [place] Urine Protein Urine Glucose (UA) Urine Ketones Urine Blood Urine Nitrite Ur Leukocyte Esterase Urine RBC Urine WBC Ur Squamous Epith Cells Urine Bacteria COVID-19 (PHAN) COVID-19 Clin Com 03/14/22 03/14/22 03/14/22 06:04 08:14 08:44 WBC RBC Hgb Hct MCV MCH MCHC RDW Plt Count MPV Immature Gran % (Auto) Neut % (Auto) Lymph % (Auto) [place] % (Auto) Eos % (Auto) Baso % (Auto) Lymph # (Auto) [place] # (Auto) Eos # (Auto) Baso # (Auto) Abs Immat Gran (auto) Absolute Neuts (auto) Absolute Nucleated RBC Nucleated RBC % (auto) Sodium 140 Potassium 4.4 Chloride 107 Carbon Dioxide 27 Anion Gap 10 L BUN 20 H Creatinine 1.27 Estim Creat Clear Calc 81.9 Estimated GFR > 60 Random Glucose 124 H Fasting Glucose Calcium 8.9 Total Bilirubin 0.3 Direct Bilirubin 0.2 AST 19 ALT 32 Alkaline Phosphatase 68 Total Protein 6.4 L Albumin 4.2 Urine Color STRAW Urine Appearance CLEAR Urine pH 6.0 Ur Specific [place] 1.025 Urine Protein NEG Urine Glucose (UA) NEG Urine Ketones NEG Urine Blood 1+ H Urine Nitrite NEG Ur Leukocyte Esterase NEG Urine RBC 0-2 Urine WBC 0-2 Ur Squamous Epith Cells TRACE Urine Bacteria NONE COVID-19 (PHAN) Negative COVID-19 Clin Com See Note 03/15/22 03/16/22 03/16/22 07:17 06:53 06:53 WBC 8.8 RBC 4.45 L Hgb 12.8 L Hct 37.8 L MCV 84.9 MCH 28.8 MCHC 33.9 RDW 11.9 Plt Count 244 MPV 8.9 L Immature Gran % (Auto) Neut % (Auto) Lymph % (Auto) [place] % (Auto) Eos % (Auto) Baso % (Auto) Lymph # (Auto) [place] # (Auto) Eos # (Auto) Baso # (Auto) Abs Immat Gran (auto) Absolute Neuts (auto) Absolute Nucleated RBC 0.000 Nucleated RBC % (auto) 0.0 Sodium 138 138 Potassium 4.2 4.7 Chloride 107 103 Carbon Dioxide 26 28 Anion Gap 9 L 12 BUN 16 15 Creatinine 1.60 H 1.57 H Estim Creat Clear Calc 65.0 66.3 Estimated GFR 46 47 Random Glucose 111 Fasting Glucose 91 Calcium 8.7 8.8 Total Bilirubin Direct Bilirubin AST ALT Alkaline Phosphatase Total Protein Albumin Urine Color Urine Appearance Urine pH Ur Specific [place] Urine Protein Urine Glucose (UA) Urine Ketones Urine Blood Urine Nitrite Ur Leukocyte Esterase Urine RBC Urine WBC Ur Squamous Epith Cells Urine Bacteria COVID-19 (PHAN) COVID-19 Clin Com Airway Mallampati Class: II TM Dist: >3cm Neck ROM: Full Assessment and Plan Assessment Anesthesia Assessment: Anesthesia Plan Discussed and Chart Reviewed Final Anesthetic Review Family History of Problems with Anesthesia: No History of Problems with Anesthesia: No NPO: Yes ASA Class: II Final Preanesthetic Review: No Changes in Pt Med Stat, Meds/Allgs Chart Reviewed, Consent Obtained/Reviewed and Anes Risks/Benef Reviewed Patient Risk: Low Procedure Risk: Low Anesthetic Plan Anesthetic Plan: GA Disposition: Standard PACU
--- NOTE | 2022-03-16 14:01 | P.OP_ITS ---
Operative Note Operative Note Date of Service: 03/16/22 Narrative: PreOperative Diagnosis: distal left ureteric stone Post Operative Diagnosis: distal left ureteric stone Procedure: - cystoscopy, left retrograde - left dilatation of ureteric orifice under fluoroscopy - left ureteroscopy, laser lithotripsy, stone basketing - left stent placement Surgeon: Dr Jose Cook Anesthesia: General Indications for procedure: presentation with left-sided flank pain. Imaging with distal left ureteric stone and mild hydroureteronephrosis. Creatinine 1.6. Procedure: After informed consent was verified patient was brought to the operating placed in supine position. Anesthesia was administered per protocol. Patient was placed in modified dorsal lithotomy position and prepped and draped in a sterile fashion. Safety pause time-out and side of surgery confirmed. Antibiotics confirmed. A 22 [place] cystoscope was inserted per urethra. Bladder was normal in its entirety. Both ureteric orifices were in normal position. The Left ureteric orifice was cannulated and a retrograde examination was performed. filling defects seen in distal portion of ureter with mild hydroureteronephrosis . A Sensor guidewire was placed up to the level of the renal pelvis under fluoroscopy. The rigid cystoscope was removed. A [place] dilator was placed over the Sensor guidewire and used to dilate the ureteric orifice under fluoroscopy. The dilator was removed. The semi rigid ureteral scope was placed alongside the Sensor guidewire. stone was encountered in the distal portion of the ureter. This was broken with a 365 micron fiber. Stone fragments were basketed free. A 6 [place] by 26 cm double-J stent was placed into the renal pelvis and bladder under a combination of fluoroscopy and direct visualization. The bladder was emptied. The patient tolerated the procedure well and was extubated in the operating room, and transferred in stable condition to the recovery area. Pathology: Stones Drains: 6 [place] by 26 cm double-J
[2022-03-16] MEDS: Phenazopyridine HCL 100 MG TABLET PO (14:57)
[2022-03-16] MEDS: oxyCODONE HCl Immed Release 5 MG TABLET 10 MG PO (17:29)
[2022-03-16] MEDS: Metoclopramide HCl 10 MG/2 ML VIAL 5 MG IVPUSH (17:37)
[2022-03-16] MEDS: traMADoL HCL 50 MG TABLET PO (19:36)
[2022-03-17] VITALS: BP 158/69; PULSE 69; RESP 17; TEMP 36.1; O2SAT 96
[2022-03-17 04:00] VITALS: BP 129/70; PULSE 77; RESP 18; TEMP 36.3; O2SAT 97
[2022-03-17] MEDS: Lactated Ringers 1,000 ML 100 ML IVCONT (04:31)
[2022-03-17 06:48] LABS: Hematocrit 36.7 % (42.0-52.0); Hemoglobin 12.6 g/dl (14.0-18.0); Mean Corpuscular HGB Conc 34.3 g/dl (31.0-36.0); Mean Corpuscular Hemoglobin 28.6 pg (27.0-33.0); Mean Corpuscular Volume 83.2 fL (80.0-98.0); Mean Platelet Volume 8.8 fL (9.4-12.4); Platelet Count 247 X10*3/uL (160-400); Red Blood Count 4.41 X10*6/uL (4.60-5.80); Red Cell Distribution Width 11.7 % (11.0-16.0); White Blood Count 9.4 X10*3/uL (4.8-10.8)
[2022-03-17 06:55] LABS: Anion Gap 11 (12-20); Blood Urea Nitrogen 13 mg/dL (9-16); Carbon Dioxide 30 mmol/L (22-29); Chloride 103 mmol/L (96-108); Creatinine Clr Calc Pharmacy 77.6; Estimated Glomerular Filt Rate 57; Glucose Fasting 113 mg/dL (60-99); Potassium 4.7 mmol/L (3.3-5.1); Sodium 139 mmol/L (135-145)
[2022-03-17 07:11] VITALS: BP 152/86; PULSE 73; RESP 18; TEMP 36.8; O2SAT 95
[2022-03-17] MEDS: polyethylene glycoL 3350 17 GM POWD.PACK PO (09:45)
--- NOTE | 2022-03-17 09:50 | HO.POSTANES ---
Post Anesthesia Evaluation Post Anesthesia Evaluation Vital Signs: Vital Signs Temp Pulse Resp BP Pulse Ox 03/17/22 07:11 98.2 F 73 18 152/86 H 95 03/17/22 04:00 97.4 F 77 18 129/70 97 03/17/22 00:00 97.0 F 69 17 158/69 H 96 Anesthesia: General Mental Status: Awake Pain Control: Satisfactory Nausea/Vomiting: None Hydration: Adequate Anesthesia-Related Issues: No Anes. Related Issues
--- NOTE | 2022-03-17 10:31 | P.DS_ITS ---
DS: Providers Provider Date of Service: 03/17/22 Date of admission: 03/14/22 10:27 Primary care physician: Cody Rincon MD Consults: 03/14/22 09:32 Consult to Urology Routine Consulting Provider: Jose Cook Reason for consultation: obstructing stone DS: Diagnosis Discharge Diagnosis (1) Kidney stones: Status: Acute DS: Summary Hospital Course Hospital Course: from initial hpi: Chief Complaint: flank pain This is a 46 year old male who endorses no significant PMH, presents to the ED with complaints of sudden onset L flank pain which began on the night prior to arrival. He reports, that his pain woke him up from sleep. He reports 1 prior episode of kidney stones for which he did not seek medical attention. He reports that it passed on its own. He reports that his pain during this epsidoe is significantly worse. Rates it as a 10/10 and down to 6-7/10 after analgesics. He denies any hematuria. Denies any dysuria/frequency/urgency. Denies any fevers or chills. No FH is renal stones. Work in the ED showed a 3mm obstructing stone at the disal uretral calculus causing mild L hydro. He was given 4 rounds of IV analgesics (opioid + non- opioid) and a L of IVF + 2 rounds of IV anti-emetics. His pain improved, but did not resolve. Case was d/w Urology who recommended admission to medicine. hospital course: Patient was admitted for left flank pain due to obstructing renal stone complicated by left hydronephrosis and acute kidney injury. Patient was given IV fluids and analgesics. He was seen by Urology who performed cystoscopy, laser lithotripsy, stone basketing, left stent placement. Patient's pain then significantly improved, as renal function returned to normal. He will be discharged home and will follow up with Urology as outpatient. Time Spent with Patient Time attestation: Total time spent providing and/or coordinating discharge services: Discharge coordination time: Greater than 30 minutes Quality: Safe Use of Opioids Does Pt have an Active Cancer Diagnosis on the Problem List?: No Quality: Stroke Does the patient have a stroke diagnosis?: No Physical Exam Vital Signs: Vital Signs: Last Vital Signs Temp 98.2 F 03/17/22 07:11 Pulse 73 03/17/22 07:11 Resp 18 03/17/22 07:11 BP 152/86 H 03/17/22 07:11 Pulse Ox 95 03/17/22 07:11 BMI result Body Mass Index 27.8 General: AO X 3, no acute distress Resp: CTA bilateral, no accessory muscles used CVS: S1,S2,RRR GI: soft, non tender, non distended Neuro: motor grossly intact, alert Psych: appropriate affect, appropriate insight DS: Data Data Completed and Pending Pending studies at discharge: Pending at discharge 03/16/22 14:17 Surgical [PTH] Routine Labs on day of discharge: Laboratory Results - last 24 hr 03/17/22 03/17/22 06:22 06:22 WBC 9.4 RBC 4.41 L Hgb 12.6 L Hct 36.7 L MCV 83.2 MCH 28.6 MCHC 34.3 RDW 11.7 Plt Count 247 MPV 8.8 L Absolute Nucleated RBC 0.000 Nucleated RBC % (auto) 0.0 Sodium 139 Potassium 4.7 Chloride 103 Carbon Dioxide 30 H Anion Gap 11 L BUN 13 Creatinine 1.34 Estim Creat Clear Calc 77.6 Estimated GFR 57 Fasting Glucose 113 H Calcium 9.0 Discharge Plan Discharge Patient Disposition: Home, Self-Care Discharge Diagnosis: kidney stone Referrals: Jose Cook MD [Physician] - 1 Week Cody Rincon MD [Primary Care Provider] - 1 Week Discharge Medications: New phenazopyridine [Pyridium] 100 mg tablet 100 mg PO TID PRN (Reason: spasm) 4 Days Qty: 12 0RF tamsulosin 0.4 mg capsule 0.4 mg PO BEDTIME 14 Days Qty: 14 0RF naproxen 500 mg tablet 500 mg PO BID PRN (Reason: pain) 7 Days Qty: 14 0RF Continued ibuprofen [Advil] 200 mg Tablet 400 mg PO Q6H PRN (Reason: Pain) 0RF Discharge Orders: Discharge Order (Routine); Ordered 03/17/22 Ordered By: Sudhir Kruger Diet: advance to usual diet Activity on Discharge: As tolerated Stand Alone Forms: Patient Portal Discharge page Care Plan Goals: recovery Health Concerns: kidney stone Plan of Treatment: drink fluids, follow up with urology Assessment: see above
[2022-03-17 11:16] VITALS: BP 150/88; PULSE 85; RESP 18; TEMP 36.7; O2SAT 98
[2022-03-21 15:27] LABS: Stone Source KIDNEY STONE
== END 2022-03-17 12:49 | disposition home or self-care (01) | DRG 446 ==
LOC: HO.ED 07:12 → HO.EDOVER 09:50 → HO.S3 03-15 21:14
PROVIDERS: Emergency Medicine; Urology; Admitting Provider Family Medicine; Emergency Provider Emergency Medicine; PCP Internal Medicine; Visit Provider Internal Medicine
PROC: 0TC78ZZ Extirpation of Matter from Left Ureter, Via Natural or Artificial Opening Endoscopic (ICD-10-PCS; principal; 2022-03-16 13:00)
DX: N13.2 Hydronephrosis with renal and ureteral calculous obstruction (principal); Z20.822 Contact with and (suspected) exposure to COVID-19; Z79.899 Other long term (current) drug therapy
CPT/HCPCS: 36415; 74176; 80048; 80053; 80076; 81001; 82365; 85025; 85027; 87635; 88300; 96361; 96374; 96375; 96376; 99285; C1758; C1769; C2617; J1100; J1170; J1885; J1956; J2250; J2270; J2405; J2765; J3010; Q9967

== ENCOUNTER 2022-03-22 20:26 | Emergency (ER) | payer MEDICAID, SELFPAY ==
--- NOTE | 2022-03-22 | ECG_ITS ---
Test Reason : SEPSIS Blood Pressure : / mmHG Vent. Rate : 093 BPM Atrial Rate : 093 BPM P-R Int : 152 ms QRS Dur : 084 ms QT Int : 340 ms P-R-T Axes : 057 049 044 degrees QTc Int : 422 ms Normal sinus rhythm Normal ECG No previous ECGs available Referred By: Generic ED Physician Electronically Signed By:BRENDA FRIAS
--- NOTE | ~2022-03-22 | CT_ITS ---
EXAMINATION: CT ABDOMEN AND PELVIS WITHOUT CONTRAST CLINICAL INFORMATION: Diffuse abdominal pain status post lithotripsy COMPARISON: None TECHNIQUE: Multidetector volumetric imaging was performed from the superior aspect of the liver through the pubic symphysis. Sagittal and coronal reformatted images were obtained on the technologist's workstation. This CT examination was performed using dose optimization techniques as appropriate, variously including the following: *Automated exposure control *Adjustment of mA and/or kV according to patient size (this includes techniques or standardized protocols for targeted exams where dose is matched to indication/reason for exam; i.e. extremities or head) *Use of iterative reconstruction technique DLP: 633 mGy-cm FINDINGS: LUNG BASES: The visualized lung bases are unremarkable. LIVER, GALLBLADDER, AND BILIARY TREE: The liver is normal in size, shape, and attenuation. No focal hepatic lesion or biliary ductal dilatation is present. The gallbladder contains a single 1.3 cm gallstone but otherwise is unremarkable with no evidence of gallbladder wall thickening, or obvious pericholecystic inflammatory changes. PANCREAS: Unremarkable. SPLEEN: Unremarkable. ADRENAL GLANDS: Unremarkable. KIDNEYS AND URETERS: The kidneys are normal in size, shape, and attenuation. A double-J ureteral stent is present on the left. The proximal pigtail is in the left renal pelvis about 6 cm of catheter is in the bladder. No hydronephrosis, hydroureter, or calculi seen. No perinephric stranding. BLADDER: Unremarkable. GASTROINTESTINAL TRACT: The small and large bowel are unremarkable. The appendix is unremarkable. ABDOMINAL WALL: No significant hernia is appreciated. There is a small periumbilical hernia seen containing only fat. LYMPH NODES: Normal. VASCULAR: Unremarkable. PELVIC VISCERA: Prostate within normal limits contains calcifications. OSSEOUS STRUCTURES: Unremarkable. CT/CT abdomen pelvis wo con IMPRESSION: 1. A cause for the patient's diffuse abdominal pain has not been found. 2. Left-sided double-J ureteral stent present with some redundancy in the bladder. 3. 1.3 cm gallstone without evidence of cholecystitis. Fleischner guidelines were followed.
--- NOTE | ~2022-03-22 | XR_ITS ---
EXAMINATION: XR CHEST CLINICAL INFORMATION: Tachycardia COMPARISON: None TECHNIQUE: Frontal view of the chest was obtained. FINDINGS: No significant abnormality is noted involving the heart, lungs, mediastinum, bony thorax or soft tissues. XR/XR chest 1V IMPRESSION: Unremarkable examination.
[2022-03-22 20:38] VITALS: BP 151/94; PULSE 113; RESP 18; TEMP 37.9; O2SAT 95; BMI 30.1
--- NOTE | 2022-03-22 21:07 | ED.GENADULT ---
HPI - General Adult General Chief complaint: General Medical Stated complaint: vomiting/diarrhea/fever Time Seen by Provider: 03/22/22 20:59 Source: patient Mode of arrival: ambulatory Limitations: no limitations History of Present Illness HPI narrative: 46-year-old male presents to the emergency department with sudden onset nausea, body aches and pains, subjective fevers and chills, diarrhea since 08:00 o'clock this morning. He tells me everything started suddenly other than the diarrhea which has been going on for about a week. Patient tells me his stools completely lucid he is having 4-5 bowel movements a day that is foul smelling. Denies recent antibiotic use, denies history of C diff. patient tells me he feels very nauseous and has not been able to keep anything down. Patient is shivering and feels very cold. He is not vaccinated against COVID or the flu. He denies abdominal pain, chest pain, shortness of breath, headache, dizziness. To note patient reports recent lithotripsy. Onset (ago): day(s) (1) Relieving factors: none Exacerbating factors: none Associated symptoms: fever/chills, loss of appetite, malaise, nausea/vomiting and weakness Treatments prior to arrival: none Related Data Home Medications Medication Instructions Recorded Confirmed ibuprofen 200 mg tablet (Advil) 400 mg PO Q6H PRN 03/14/22 03/14/22 Previous Rx's Medication Instructions Recorded naproxen 500 mg tablet 500 mg PO BID PRN 7 Days #14 tab 03/16/22 phenazopyridine 100 mg tablet 100 mg PO TID PRN 4 Days #12 tab 03/16/22 (Pyridium) tamsulosin 0.4 mg capsule 0.4 mg PO BEDTIME 14 Days #14 cap 03/16/22 ondansetron HCl 4 mg tablet 4 mg PO Q8H PRN 3 Days #20 tab 03/22/22 cefuroxime axetil 250 mg tablet 250 mg PO BID 7 Days #14 tab 03/23/22 ondansetron 4 mg disintegrating 4 mg PO ONCE PRN #10 tab 03/23/22 tablet Allergies Allergy/AdvReac Type Severity Reaction Status Date / Time No Known Allergies Allergy Verified 03/14/22 05:06 Review of Systems Review of Systems: Constitutional : No Weight loss, + Fever, + Chills, + Fatigue, + Malaise ENT/Mouth : No sore throat, No Rhinorrhea Eyes: No Eye Pain, No Swelling, No Redness Cardiovascular : No Chest Pain, No SOB, No Dyspnea on Exertion, No Orthopnea, No Edema, No Palpitations Respiratory : No Cough, No Sputum, No Wheezing Gastrointestinal : No Nausea, No Vomiting, + Diarrhea, No Constipation, No abdominal Pain, No Hematochezia, No Melena Genitourinary : No Dysuria, No Urinary Frequency, No Hematuria, Musculoskeletal : No joint pain, No Myalgias, No Joint Swelling Skin : No Skin Lesions, No rash Neuro : No Weakness, No Numbness, No Dizziness, No Headache Psych : + Anxiety/Panic, No Depression All other systems reviewed and are negative Yes all other systems are reviewed and are negative [facility] Past Medical History Attestation statement: The following information was validated with the patient. Source: old records reviewed and nursing notes reviewed Medical History (Updated 03/23/22 @ 00:29 by MARIELLA Orona) Kidney stones Surgical History (Updated 03/14/22 @ 09:43 by Vel Maldonado MD) History of surgery on lower extremity Family History Family History (Updated 03/14/22 @ 09:42 by Vel Maldonado MD) Mother Colon cancer Social History Social History Household Members: Spouse Housing: House Do you presently have visiting nurse or other home services: No Alcohol intake: never Patient Tobacco Use Status: Never used Tobacco Substance Use Type: Marijuana Advance Directives: No Advance Directives Information Provided: No service: No Current occupational status: employed Physical Exam ED Vital Signs: Vital Signs - 24 hr 03/22/22 20:38 03/22/22 22:22 03/23/22 00:16 Temperature 100.3 F 98.7 F 98.6 F Pulse Rate 113 H 82 95 Respiratory Rate 18 10 L 20 Blood Pressure 151/94 H 148/85 H 168/94 H Pulse Oximetry 95 95 955 H BMI result Body Mass Index 30.1 Patient is noted to have a low-grade fever, and is noted to be tachycardic Appearance: Alert.? Oriented X3.? No acute distress.? Head: Normocephalic, atraumatic, no step-offs or deformities Eyes: Pupils equal, round and reactive to light.? ENT: Pharynx normal.? Neck: Normal inspection.? Neck supple.? CVS: Normal heart rate and rhythm.? Pulses normal.? Respiratory: No respiratory distress.? Breath sounds normal.? Abdomen: Soft and nontender.? Skin: Skin warm and dry.? Normal skin color.? Normal skin turgor.? Extremities: No lower extremity edema.? No calf ttp. 5/5 strength to bilateral upper and lower extremities Back: No midline tenderness, no C-spine tenderness, full range of motion, no CVA tenderness bilaterally Neuro: Oriented X 3.? No motor deficit.? No sensory deficit. CN 2-12 intact Course Course Course Narrative: Discussed this case with who agrees with savannah dickson home with urology follow up. Reevaluation(s) Reevaluation #1: CBC appears to be around patient's baseline. Patient's chemistry with an elevated BUN likely secondary to dehydration. Lactic acid 1.6. Lipase within normal limits unlikely pancreatitis. Normal transaminases. Urine pending. CT of the abdomen and pelvis unable to identify a cause for patient's diffuse abdominal pain. 1.3 cm gallstone without evidence of cholecystitis is noted. COVID and influenza negative. Patient's symptoms likely secondary to viral infection. Time: 00:00 Reevaluation #2: Patient noted to have a UTI. He will be given a dose of Ceftin here. And sent home on Ceftin 250 mg p.o. b.i.d.. Patient tells me he is unable to give me a stool sample at this time and doesnt want to wait here becuase he feels like he cant give us one, he tells me he will follow-up with his PCP as soon as possible. Patient has not had a single bowel movement here in the department therefore low suspicion for C diff. He tells me he is feeling better. Patient's vital signs are stable he is not febrile or tachycardic. He appears much better. He tells me he is feeling better and he is feeling tired. I advised him to return with new or worsening symptoms. Comfortable with discharge home. Time: 00:48 Reevaluation #3: Patient given outpatient slips for stool studies Medical Decision Making MDM Narrative Medical decision making narrative: [id number] 38-year-old male with no significant medical history presents with the emergency department of sudden onset body aches, nausea, diarrhea, subjective fevers and chills since this morning at a.m.. Denies hematochezia. Physical examination benign. Upon review of vital signs patient is noted to be tachycardic and has a low-grade fever. At this time I suspect viral infection. Low suspicion for sepsis at this time. Patient likely tachycardic secondary to anxiety/nausea and fever. Will hold on starting antibiotics. Plan at this time is to obtain basic labs, imaging. Ordered C diff. Medical Records Medical records reviewed: Yes I reviewed the patient's medical records. Lab Data Lab results reviewed: Yes I reviewed the patient's lab results. Result diagrams: 03/22/22 21:15 03/22/22 21:15 Labs: Lab Results 03/22/22 03/22/22 03/22/22 Range/Units 21:15 21:15 21:15 WBC (4.8-10.8) X10*3/uL RBC (4.60-5.80) X10*6/uL Hgb (14.0-18.0) g/dl Hct (42.0-52.0) % MCV (80.0-98.0) fL MCH (27.0-33.0) pg MCHC (31.0-36.0) g/dl RDW (11.0-16.0) % Plt Count (160-400) X10*3/uL MPV (9.4-12.4) fL Immature Gran % (Auto) (0.0-0.4) % Neut % (Auto) (45-73) % Lymph % (Auto) (20-40) % [place] % (Auto) (2-11) % Eos % (Auto) (0-4) % Baso % (Auto) (0-2) % Lymph # (Auto) (1.2-4.9) X10*3/uL [place] # (Auto) (0.1-1.2) X10*3/uL Eos # (Auto) (0.0-0.4) X10*3/uL Baso # (Auto) (0.0-0.2) X10*3/uL Abs Immat Gran (auto) (0.00-0.03) X10*3/uL Absolute Neuts (auto) (2.0-8.3) x10*3/uL Absolute Nucleated RBC (0.0-0.012) X10*3/uL Nucleated RBC % (auto) (0.0-0.2) /100WBC Smear Tech's Comments Sodium 140 (135-145) mmol/L Potassium 4.1 (3.3-5.1) mmol/L Chloride 108 (96-108) mmol/L Carbon Dioxide 20 L (22-29) mmol/L Anion Gap 16 (12-20) BUN 22 H D (9-16) mg/dL Creatinine 1.20 (0.5-1.4) mg/dL Estim Creat Clear Calc 81.9 Estimated GFR > 60 Random Glucose 129 H (60-115) mg/dL Lactic Acid (0.5-2.0) mmol/L Calcium 9.0 (8.4-10.2) mg/dL Total Bilirubin 0.7 (0.0-1.0) mg/dL Direct Bilirubin 0.3 (0.0-0.5) mg/dL AST 19 (5-37) U/L ALT 39 (0-40) U/L Alkaline Phosphatase 74 (39-117) U/L Total Protein 6.8 (6.5-8.0) g/dL Albumin 4.3 (3.5-5.0) g/dL Lipase 22 (8-78) U/L Urine Color Urine Appearance Urine pH (5.0-8.0) Ur Specific [place] (1.005-1.025) Urine Protein (NEG-TRACE) MG/DL Urine Glucose (UA) (NEG) MG/DL Urine Ketones (NEG) MG/DL Urine Blood (NEG) Urine Nitrite (NEG) Ur Leukocyte Esterase (NEG) Urine RBC (0) /HPF Urine WBC (0-4) /HPF Ur Squamous Epith Cells /LPF Amorphous Sediment /LPF Urine Bacteria /LPF Urine Mucus /LPF Urine Opiates Screen (Not Detect) Urine Fentanyl Screen (Not Detect) Ur Barbiturates Screen (Not Detect) Ur Phencyclidine Scrn (Not Detect) Ur Amphetamines Screen (Not Detect) U Benzodiazepines Scrn (Not Detect) Urine Cocaine Screen (Not Detect) U Marijuana (THC) Screen (Not Detect) COVID-19 (PHAN) Negative (Negative) COVID-19 Clin Com See Note Influenza Type A (JEVON) Negative (Negative) Influenza Type B (JEVON) Negative (Negative) Influenza A & B Note See Note 03/22/22 03/22/22 03/23/22 Range/Units 21:15 21:15 00:18 WBC 9.9 (4.8-10.8) X10*3/uL RBC 5.21 (4.60-5.80) X10*6/uL Hgb 14.9 (14.0-18.0) g/dl Hct 43.0 (42.0-52.0) % MCV 82.5 (80.0-98.0) fL MCH 28.6 (27.0-33.0) pg MCHC 34.7 (31.0-36.0) g/dl RDW 11.9 (11.0-16.0) % Plt Count 307 (160-400) X10*3/uL MPV 8.6 L (9.4-12.4) fL Immature Gran % (Auto) 0.3 (0.0-0.4) % Neut % (Auto) 92.3 H (45-73) % Lymph % (Auto) 3.3 L (20-40) % [place] % (Auto) 3.9 (2-11) % Eos % (Auto) 0.1 (0-4) % Baso % (Auto) 0.1 (0-2) % Lymph # (Auto) 0.3 L (1.2-4.9) X10*3/uL [place] # (Auto) 0.4 (0.1-1.2) X10*3/uL Eos # (Auto) 0.0 (0.0-0.4) X10*3/uL Baso # (Auto) 0.0 (0.0-0.2) X10*3/uL Abs Immat Gran (auto) 0.03 (0.00-0.03) X10*3/uL Absolute Neuts (auto) 9.2 H (2.0-8.3) x10*3/uL Absolute Nucleated RBC 0.000 (0.0-0.012) X10*3/uL Nucleated RBC % (auto) 0.0 (0.0-0.2) /100WBC Smear Tech's Comments VERIFIED Sodium (135-145) mmol/L Potassium (3.3-5.1) mmol/L Chloride (96-108) mmol/L Carbon Dioxide (22-29) mmol/L Anion Gap (12-20) BUN (9-16) mg/dL Creatinine (0.5-1.4) mg/dL Estim Creat Clear Calc Estimated GFR Random Glucose (60-115) mg/dL Lactic Acid 1.6 (0.5-2.0) mmol/L Calcium (8.4-10.2) mg/dL Total Bilirubin (0.0-1.0) mg/dL Direct Bilirubin (0.0-0.5) mg/dL AST (5-37) U/L ALT (0-40) U/L Alkaline Phosphatase (39-117) U/L Total Protein (6.5-8.0) g/dL Albumin (3.5-5.0) g/dL Lipase (8-78) U/L Urine Color Urine Appearance Urine pH (5.0-8.0) Ur Specific [place] (1.005-1.025) Urine Protein (NEG-TRACE) MG/DL Urine Glucose (UA) (NEG) MG/DL Urine Ketones (NEG) MG/DL Urine Blood (NEG) Urine Nitrite (NEG) Ur Leukocyte Esterase (NEG) Urine RBC (0) /HPF Urine WBC (0-4) /HPF Ur Squamous Epith Cells /LPF Amorphous Sediment /LPF Urine Bacteria /LPF Urine Mucus /LPF Urine Opiates Screen Not Detected (Not Detect) Urine Fentanyl Screen Not Detected (Not Detect) Ur Barbiturates Screen Not Detected (Not Detect) Ur Phencyclidine Scrn Not Detected (Not Detect) Ur Amphetamines Screen Not Detected (Not Detect) U Benzodiazepines Scrn Not Detected (Not Detect) Urine Cocaine Screen Not Detected (Not Detect) U Marijuana (THC) Screen POSITIVE H (Not Detect) COVID-19 (PHAN) (Negative) COVID-19 Clin Com Influenza Type A (JEVON) (Negative) Influenza Type B (JEVON) (Negative) Influenza A & B Note 03/23/22 Range/Units 00:18 WBC (4.8-10.8) X10*3/uL RBC (4.60-5.80) X10*6/uL Hgb (14.0-18.0) g/dl Hct (42.0-52.0) % MCV (80.0-98.0) fL MCH (27.0-33.0) pg MCHC (31.0-36.0) g/dl RDW (11.0-16.0) % Plt Count (160-400) X10*3/uL MPV (9.4-12.4) fL Immature Gran % (Auto) (0.0-0.4) % Neut % (Auto) (45-73) % Lymph % (Auto) (20-40) % [place] % (Auto) (2-11) % Eos % (Auto) (0-4) % Baso % (Auto) (0-2) % Lymph # (Auto) (1.2-4.9) X10*3/uL [place] # (Auto) (0.1-1.2) X10*3/uL Eos # (Auto) (0.0-0.4) X10*3/uL Baso # (Auto) (0.0-0.2) X10*3/uL Abs Immat Gran (auto) (0.00-0.03) X10*3/uL Absolute Neuts (auto) (2.0-8.3) x10*3/uL Absolute Nucleated RBC (0.0-0.012) X10*3/uL Nucleated RBC % (auto) (0.0-0.2) /100WBC Smear Tech's Comments Sodium (135-145) mmol/L Potassium (3.3-5.1) mmol/L Chloride (96-108) mmol/L Carbon Dioxide (22-29) mmol/L Anion Gap (12-20) BUN (9-16) mg/dL Creatinine (0.5-1.4) mg/dL Estim Creat Clear Calc Estimated GFR Random Glucose (60-115) mg/dL Lactic Acid (0.5-2.0) mmol/L Calcium (8.4-10.2) mg/dL Total Bilirubin (0.0-1.0) mg/dL Direct Bilirubin (0.0-0.5) mg/dL AST (5-37) U/L ALT (0-40) U/L Alkaline Phosphatase (39-117) U/L Total Protein (6.5-8.0) g/dL Albumin (3.5-5.0) g/dL Lipase (8-78) U/L Urine Color DK YELLOW Urine Appearance HAZY Urine pH 5.0 (5.0-8.0) Ur Specific [place] >= 1.030 H (1.005-1.025) Urine Protein 2+ H (NEG-TRACE) MG/DL Urine Glucose (UA) 100 H (NEG) MG/DL Urine Ketones 5 (NEG) MG/DL Urine Blood 3+ H (NEG) Urine Nitrite POS H (NEG) Ur Leukocyte Esterase TRACE H (NEG) Urine RBC 30-49 H (0) /HPF Urine WBC 5-9 H (0-4) /HPF Ur Squamous Epith Cells NONE /LPF Amorphous Sediment 1+ /LPF Urine Bacteria NONE /LPF Urine Mucus 2+ /LPF Urine Opiates Screen (Not Detect) Urine Fentanyl Screen (Not Detect) Ur Barbiturates Screen (Not Detect) Ur Phencyclidine Scrn (Not Detect) Ur Amphetamines Screen (Not Detect) U Benzodiazepines Scrn (Not Detect) Urine Cocaine Screen (Not Detect) U Marijuana (THC) Screen (Not Detect) COVID-19 (PHAN) (Negative) COVID-19 Clin Com Influenza Type A (JEVON) (Negative) Influenza Type B (JEVON) (Negative) Influenza A & B Note Critical Care Time Critical Care Time Critical Care Time: No Discharge Plan Discharge Clinical Impression: Acute UTI, Nausea, Fever, Myalgia, Diarrhea, Dehydration, Viral infection Patient Disposition: Home, Self-Care Additional Instructions: Take your medications as prescribed. If you were prescribed antibiotics today, it is important that you take your medication to their entirety, do not skip any doses, do not finish them early. Follow-up with your primary care provider tomorrow. Please follow-up with gastroenterology in GI. Return to the emergency department with new or worsening symptoms. Such as fevers, chills, chest pain, shortness of breath, nausea, vomiting, dizziness, headache, vision changes, lethargy, bloody stool You can take ibuprofen every 6 hours, Tylenol every 4 to as needed for fever discomfort In case of emergency call 911 CT/CT abdomen pelvis wo con IMPRESSION: 1.? A cause for the patient's diffuse abdominal pain has not been found. 2.? Left-sided double-J ureteral stent present with some redundancy in the bladder. 3.? 1.3 cm gallstone without evidence of cholecystitis.? ? Fleischner guidelines were followed. ' XR/XR chest 1V IMPRESSION: Unremarkable examination. Your found to have a urinary tract infection. Please follow-up with urology Dr. Cook. Please follow-up with your PCP in regards to constipation. Please hydrate herself drink plenty of fluids. Prescriptions: New cefuroxime axetil 250 mg tablet 250 mg PO BID 7 Days Qty: 14 0RF ondansetron 4 mg tablet,disintegrating 4 mg PO ONCE PRN (Reason: nausea and vomiting) Qty: 10 0RF No Action ondansetron HCl 4 mg tablet 4 mg PO Q8H PRN (Reason: nausea and vomiting) 3 Days Qty: 20 0RF ibuprofen [Advil] 200 mg Tablet 400 mg PO Q6H PRN (Reason: Pain) 0RF phenazopyridine [Pyridium] 100 mg tablet 100 mg PO TID PRN (Reason: spasm) 4 Days Qty: 12 0RF tamsulosin 0.4 mg capsule 0.4 mg PO BEDTIME 14 Days Qty: 14 0RF naproxen 500 mg tablet 500 mg PO BID PRN (Reason: pain) 7 Days Qty: 14 0RF Referrals: Jose Cook MD [Physician] - 1 day Cody Rincon MD [Primary Care Provider] - 1 day Dawit Torres [Physician] - 1 day Stand Alone Forms: Work/School Release
[2022-03-22 21:23] LABS: Basophils Percent Auto 0.1 % (0-2); Eosinophils Percent Auto 0.1 % (0-4); Hemoglobin 14.9 g/dl (14.0-18.0); Imm Gran Abs Auto 0.03 X10*3/uL (0.00-0.03); Imm Gran Pct Auto 0.3 % (0.0-0.4); Lymphocytes Absolute Auto 0.3 X10*3/uL (1.2-4.9); Lymphocytes Percent Auto 3.3 % (20-40); MANUAL DIFF FLAG SCAN; Mean Corpuscular HGB Conc 34.7 g/dl (31.0-36.0); Mean Corpuscular Hemoglobin 28.6 pg (27.0-33.0); Mean Corpuscular Volume 82.5 fL (80.0-98.0); Mean Platelet Volume 8.6 fL (9.4-12.4); Monocytes Absolute Auto 0.4 X10*3/uL (0.1-1.2); Monocytes Percent Auto 3.9 % (2-11); Neutrophils Absolute Auto 9.2 x10*3/uL (2.0-8.3); Neutrophils Percent Auto 92.3 % (45-73); Platelet Count 307 X10*3/uL (160-400); Red Blood Count 5.21 X10*6/uL (4.60-5.80); Red Cell Distribution Width 11.9 % (11.0-16.0); SCAN SMEAR FLAG 1; White Blood Count 9.9 X10*3/uL (4.8-10.8)
[2022-03-22] MEDS: Acetaminophen 325 MG TABLET 975 MG PO (21:38)
[2022-03-22] MEDS: 0.9 % Sodium Chloride 1,000 ML 999 ML IV ×2 (21:39→23:14)
[2022-03-22 21:41] LABS: SLIDE REVIEW VERIFIED
[2022-03-22 21:43] LABS: Lactic Acid 1.6 mmol/L (0.5-2.0)
[2022-03-22 21:46] LABS: Alanine Aminotransferase 39 U/L (0-40); Albumin Level 4.3 g/dL (3.5-5.0); Alkaline Phosphatase 74 U/L (39-117); Anion Gap 16 (12-20); Aspartate Amino Transferase 19 U/L (5-37); Bilirubin Direct 0.3 mg/dL (0.0-0.5); Bilirubin Total 0.7 mg/dL (0.0-1.0); Blood Urea Nitrogen 22 mg/dL (9-16); Carbon Dioxide 20 mmol/L (22-29); Chloride 108 mmol/L (96-108); Creatinine Clr Calc Pharmacy 81.9; Estimated Glomerular Filt Rate > 60; Glucose Random 129 mg/dL (60-115); Lipase 22 U/L (8-78); Potassium 4.1 mmol/L (3.3-5.1); Sodium 140 mmol/L (135-145); Total Protein 6.8 g/dL (6.5-8.0)
[2022-03-22 22:22] VITALS: BP 148/85; PULSE 82; RESP 10; TEMP 37.1; O2SAT 95
[2022-03-22 22:30] LABS: COVID-19 Test Negative (Negative); IDNOW Serial# 16C4AD1C; Influenza A Negative (Negative); Influenza B2 Negative (Negative)
[2022-03-22] MEDS: Metoclopramide HCl 10 MG/2 ML VIAL IVPUSH (23:22)
[2022-03-22] MEDS: diphenhydrAMINE HCL 50 MG/ML VIAL 25 MG IVPUSH (23:22)
[2022-03-23 00:16] VITALS: BP 168/94; PULSE 95; RESP 20; TEMP 37; O2SAT 955
[2022-03-23 00:23] LABS: Appearance Urine HAZY; Color Urine DK YELLOW; Glucose Urine UA 100 MG/DL (NEG); Leukocyte Esterase Urine TRACE (NEG); Nitrite Urine POS (NEG); Specific Gravity - Urine >= 1.030 (1.005-1.025); UACC Culture Trigger YES; Urine Blood 3+ (NEG); Urine Ketones 5 MG/DL (NEG); Urine Protein 2+ MG/DL (NEG-TRACE)
[2022-03-23 00:30] LABS: Amorphous Sediment Urine 1+ /LPF; Mucus Urine 2+ /LPF; RBC Urine 30-49 /HPF (0); UACC CULT YES
[2022-03-23 00:39] LABS: Amphetamine Screen Urine Not Detected (Not Detect); Barbiturates, Urine Not Detected (Not Detect); Benzodiazepines Screen Urine Not Detected (Not Detect); Cannabinoid Screen Urine POSITIVE (Not Detect); Cocaine Screen Urine Not Detected (Not Detect); Fentanyl, urine Not Detected (Not Detect); Opiate Screen Urine Not Detected (Not Detect); Phencyclidine Screen Urine Not Detected (Not Detect)
[2022-03-23 22:02] LABS: Leukocytes Stool Qualitative NEGATIVE (NEGATIVE)
[2022-03-23 22:11] LABS: CDiff Gene PCR NEGATIVE (Negative)
== END 2022-03-23 01:26 | disposition home or self-care (01) ==
PROVIDERS: Physician Assistant; Emergency Provider Internal Medicine; PCP Internal Medicine
DX: B34.9 Viral infection, unspecified (principal); N39.0 Urinary tract infection, site not specified; R19.7 Diarrhea, unspecified; E86.0 Dehydration; R11.0 Nausea; R50.9 Fever, unspecified; R00.0 Tachycardia, unspecified; Z20.822 Contact with and (suspected) exposure to COVID-19
CPT/HCPCS: 36415; 71045; 74176; 80053; 80307; 81001; 82248; 83605; 83690; 85025; 87040; 87045; 87046; 87086; 87493; 87502; 87635; 89055; 93005; 96361; 96374; 96375; 99283; 99285; J1200; J2765

== ENCOUNTER → 2022-03-24 13:52 | Outpatient (BNVA) | payer MEDICAID, SELFPAY | PROVIDERS: PCP Internal Medicine; Visit Provider Urology | DX: N20.0 Calculus of kidney (principal); Z46.6 Encounter for fitting and adjustment of urinary device | CPT/HCPCS: 52310; 99212 ==

== ENCOUNTER 2022-06-12 09:19 | Outpatient (REF) | payer MEDICAID, SELFPAY ==
--- NOTE | ~2022-06-12 | US_ITS ---
EXAMINATION: US RETROPERITONEAL LIMITED (RENAL ONLY) CLINICAL INFORMATION: Calculus of kidney. COMPARISON: CT abdomen and pelvis without contrast 03/22/2022. TECHNIQUE: Real-time imaging of the kidneys. FINDINGS: RIGHT KIDNEY: 10.2 x 5.0 x 4.9 cm (SAG x AP x TRV). The kidney is normal in size, contour, and echogenicity. Renal cortical thickness is normal. No calculi or focal parenchymal lesions. No hydronephrosis. LEFT KIDNEY: 10.5 x 4.9 x 4.8 cm (SAG x AP x TRV). The kidney is normal in size, contour, and echogenicity. Renal cortical thickness is normal. No calculi or focal parenchymal lesions. No hydronephrosis. US/US renal BI IMPRESSION: Unremarkable renal ultrasound.
== END 2022-06-12 09:20 | disposition home or self-care (01) ==
LOC: HO.US 09:19
PROVIDERS: Visit Provider Urology
DX: N20.0 Calculus of kidney (principal)
CPT/HCPCS: 76775

== ENCOUNTER → 2022-06-27 12:40 | Outpatient (BNVA) | payer MEDICAID, SELFPAY | PROVIDERS: PCP Internal Medicine; Visit Provider Urology | DX: N20.0 Calculus of kidney (principal) | CPT/HCPCS: 99212 ==

== ENCOUNTER 2022-07-19 15:51 | Outpatient (REF) | payer MEDICAID, SELFPAY ==
--- NOTE | ~2022-07-19 | XR_ITS ---
EXAMINATION: XR cervical spine 3V CLINICAL INFORMATION: Pain COMPARISON: None TECHNIQUE: 3 views of the cervical spine were obtained. FINDINGS: The cervical spine is visualized to the level of on the lateral view. Vertebral body alignment is maintained. Vertebral body heights are maintained. Lateral masses of C1 are well aligned on C2. Visualized portion of the dens appears intact. Moderate degenerative disc disease at C5-C6, manifested by loss of disc space height and degenerative endplate spurring. No prevertebral soft tissue swelling. XR/XR cervical spine 3V IMPRESSION: * Moderate spondylosis of the cervical spine, as above detailed.
== END 2022-07-19 15:52 | disposition home or self-care (01) ==
LOC: HO.HMGCX 15:51
PROVIDERS: PCP Internal Medicine; Visit Provider Physician Assistant
DX: M54.2 Cervicalgia (principal)
CPT/HCPCS: 72040

== ENCOUNTER 2022-12-15 14:43 | Outpatient (REF) | payer MEDICAID, SELFPAY ==
[2022-12-15 20:43] LABS: MANUAL DIFF FLAG NO
[2022-12-15 20:44] LABS: Basophils Absolute Auto 0.1 X10*3/uL (0.0-0.2); Basophils Percent Auto 0.6 % (0-2); Eosinophils Absolute Auto 0.1 X10*3/uL (0.0-0.4); Eosinophils Percent Auto 1.3 % (0-4); Hematocrit 45.4 % (42.0-52.0); Hemoglobin 15.6 g/dl (14.0-18.0); Imm Gran Abs Auto 0.02 X10*3/uL (0.00-0.03); Imm Gran Pct Auto 0.3 % (0.0-0.4); Lymphocytes Absolute Auto 2.2 X10*3/uL (1.2-4.9); Lymphocytes Percent Auto 28.5 % (20-40); Mean Corpuscular HGB Conc 34.4 g/dl (31.0-36.0); Mean Corpuscular Hemoglobin 28.8 pg (27.0-33.0); Mean Corpuscular Volume 83.8 fL (80.0-98.0); Mean Platelet Volume 9.2 fL (9.4-12.4); Monocytes Absolute Auto 0.4 X10*3/uL (0.1-1.2); Monocytes Percent Auto 5.3 % (2-11); Neutrophils Absolute Auto 4.9 x10*3/uL (2.0-8.3); Platelet Count 333 X10*3/uL (160-400); Red Blood Count 5.42 X10*6/uL (4.60-5.80); Red Cell Distribution Width 12.2 % (11.0-16.0); White Blood Count 7.7 X10*3/uL (4.8-10.8)
[2022-12-15 20:46] LABS: Appearance Urine Clear; Color Urine Yellow; Glucose Urine UA Negative (Negative); Leukocyte Esterase Urine Negative (Negative); Nitrite Urine Negative (Negative); PH 5.5 (5.0-9.0); Specific Gravity - Urine 1.015 (1.005-1.025); Urine Blood Negative (Negative); Urine Ketones Negative (Negative); Urine Protein Negative (Neg-Trace)
[2022-12-15 20:51] LABS: Bacteria Urine None Seen (None Seen); Hyaline Casts Urine 0-2 /LPF (0-2); RBC Urine 0-2 /HPF (0-2); Squamous Epithelial Cell Urine 0-2 /HPF (0-2); WBC Urine 0-5 /HPF (0-5)
[2022-12-15 21:03] LABS: Alanine Aminotransferase 30 U/L (0-40); Albumin Level 4.7 g/dL (3.5-5.0); Alkaline Phosphatase 70 U/L (39-117); Anion Gap 11 (12-20); Aspartate Amino Transferase 19 U/L (5-37); Bilirubin Total 0.4 mg/dL (0.0-1.0); Blood Urea Nitrogen 16 mg/dL (9-16); C Reactive Protein 0.15 mg/dL (< or = 0.50); Calcium 9.2 mg/dL (8.4-10.2); Carbon Dioxide 28 mmol/L (22-29); Chloride 103 mmol/L (96-108); Estimated Glomerular Filt Rate > 60; Glucose Random 88 mg/dL (60-115); Potassium 4.3 mmol/L (3.3-5.1); Sodium 138 mmol/L (135-145)
[2022-12-15 21:18] LABS: Prostate Specific Antigen 0.39 ng/mL (<0.05-4.0)
[2022-12-15 22:05] LABS: Creatinine Urine 128.83 mg/dL
[2022-12-23 19:29] LABS: Cortisol, Free 0.19 mcg/dL; Follicle Stimulating Hormone 3.7 mIU/mL (1.6-8.0); Lutenizing Hormone 1.3 mIU/mL (1.5-9.3); Prolactin 3.1 ng/mL (2.0-18.0)
[2022-12-26 10:22] LABS: Testosterone, Free 24.7 pg/mL (35.0-155.0); Testosterone, Total 169 ng/dL (250-1100)
[2022-12-30 05:24] LABS: Estradiol Free 0.24 pg/mL; Estradiol, Ultrasensitive 11 pg/mL (< OR = 29)
== END 2022-12-15 14:44 | disposition home or self-care (01) ==
LOC: HO.MANLDS 14:43
PROVIDERS: Visit Provider Physician Assistant
DX: Z12.5 Encounter for screening for malignant neoplasm of prostate (principal); I16.0 Hypertensive urgency; R79.89 Other specified abnormal findings of blood chemistry
CPT/HCPCS: 36415; 80053; 81001; 82530; 82550; 82670; 82681; 83001; 83002; 84146; 84153; 84402; 84403; 85025; 86140

== ENCOUNTER 2023-01-08 10:46 | Outpatient (REF) | payer MEDICAID, SELFPAY ==
[2023-01-08 15:11] LABS: Vitamin D 25-OH Total 23.8 ng/mL (>30)
[2023-01-16 11:33] LABS: Testosterone, Total 276 ng/dL (250-1100)
== END 2023-01-08 10:47 | disposition home or self-care (01) ==
LOC: HO.MANLDS 10:46
PROVIDERS: Visit Provider Physician Assistant
DX: R79.89 Other specified abnormal findings of blood chemistry (principal); E55.9 Vitamin D deficiency, unspecified
CPT/HCPCS: 36415; 82306; 84402; 84403

== ENCOUNTER 2023-01-10 11:39 | Outpatient (REF) | payer MEDICAID, SELFPAY ==
[2023-01-10 14:01] LABS: Appearance Urine Cloudy; Color Urine Yellow; Glucose Urine UA Negative (Negative); Leukocyte Esterase Urine Negative (Negative); Nitrite Urine Negative (Negative); PH 7.5 (5.0-9.0); Specific Gravity - Urine 1.015 (1.005-1.025); Urine Blood Negative (Negative); Urine Ketones Negative (Negative); Urine Protein Negative (Neg-Trace)
== END 2023-01-10 11:40 | disposition home or self-care (01) ==
LOC: HO.HMGCLDS 11:39
PROVIDERS: PCP Internal Medicine; Visit Provider Physician Assistant
DX: R36.1 Hematospermia (principal)
CPT/HCPCS: 81003

== ENCOUNTER 2023-07-12 09:45 | Outpatient (REF) | payer MEDICAID, SELFPAY ==
--- NOTE | ~2023-07-12 | US_ITS ---
EXAMINATION: ULTRASOUND RENAL WITH DOPPLER CLINICAL INFORMATION: Hypertension. COMPARISON: Renal ultrasound 06/12/2022. TECHNIQUE: Real-time grayscale, color Doppler, and duplex Doppler evaluation of the kidneys and renal vasculature was performed. FINDINGS: RENAL MEASUREMENTS: Right: 10.4 x 5.3 x 4.5 cm (Sag x AP x TV) Left: 11.0 x 5.5 x 5.4 cm (Sag x AP x TV) The renal parenchyma appears normal. No hydronephrosis or nephrolithiasis. Incidental note made of cholelithiasis. DOPPLER INTERROGATION: AORTA: Mid aorta: 109 cm/sec RIGHT MAIN RENAL ARTERY: Proximal: 113 cm/sec Mid: 350 cm/sec Distal: 208 cm/sec LEFT MAIN RENAL ARTERY: Proximal: 128 cm/sec Mid: 267 cm/sec Distal: 79 cm/sec RENAL-AORTIC RATIO (RAR): Right: Not calculated due to mid aortic velocity outside of range 40-100 cm/s making RAR inaccurate. Left: Not calculated due to mid aortic velocity outside of range 40-100 cm/s making RAR inaccurate. SEGMENTAL RESISTIVE INDICES: Right: 0.57-0.65 Left: 0.61-0.66 RENAL VEINS: Right: Patent with normal waveform. Left: Patent with normal waveform. US/US renal BI IMPRESSION: Abnormal elevated velocity in the mid segments of the bilateral renal arteries raises the possibility of underlying stenosis. In this location fibromuscular dysplasia should be considered. Recommend further evaluation with CTA of the abdomen without and with contrast. Cholelithiasis without evidence of cholecystitis.
--- NOTE | ~2023-07-12 | US_ITS ---
EXAMINATION: ULTRASOUND RENAL WITH DOPPLER CLINICAL INFORMATION: Hypertension. COMPARISON: Renal ultrasound 06/12/2022. TECHNIQUE: Real-time grayscale, color Doppler, and duplex Doppler evaluation of the kidneys and renal vasculature was performed. FINDINGS: RENAL MEASUREMENTS: Right: 10.4 x 5.3 x 4.5 cm (Sag x AP x TV) Left: 11.0 x 5.5 x 5.4 cm (Sag x AP x TV) The renal parenchyma appears normal. No hydronephrosis or nephrolithiasis. Incidental note made of cholelithiasis. DOPPLER INTERROGATION: AORTA: Mid aorta: 109 cm/sec RIGHT MAIN RENAL ARTERY: Proximal: 113 cm/sec Mid: 350 cm/sec Distal: 208 cm/sec LEFT MAIN RENAL ARTERY: Proximal: 128 cm/sec Mid: 267 cm/sec Distal: 79 cm/sec RENAL-AORTIC RATIO (RAR): Right: Not calculated due to mid aortic velocity outside of range 40-100 cm/s making RAR inaccurate. Left: Not calculated due to mid aortic velocity outside of range 40-100 cm/s making RAR inaccurate. SEGMENTAL RESISTIVE INDICES: Right: 0.57-0.65 Left: 0.61-0.66 RENAL VEINS: Right: Patent with normal waveform. Left: Patent with normal waveform. US/US renal doppler IMPRESSION: Abnormal elevated velocity in the mid segments of the bilateral renal arteries raises the possibility of underlying stenosis. In this location fibromuscular dysplasia should be considered. Recommend further evaluation with CTA of the abdomen without and with contrast. Cholelithiasis without evidence of cholecystitis.
== END 2023-07-12 09:46 | disposition home or self-care (01) ==
LOC: HO.HMGCX 09:45
PROVIDERS: Absent Provider Urology; PCP Internal Medicine; Visit Provider Physician Assistant
DX: N20.0 Calculus of kidney (principal); I10 Essential (primary) hypertension
CPT/HCPCS: 76775; 93975

== ENCOUNTER 2023-07-23 11:48 | Outpatient (AMB) | payer MEDICAID, SELFPAY ==
--- NOTE | 2023-07-23 11:48 | MHC.OFFVIS ---
Intake Intake Visit Reasons: 1Y US(set) Intake Note: Patient presents for follow up kidney stone/ultrasound (imaging 07/09/23) Urology Medications: Vitamin B6 Blood Thinner: none Customer Quality Engineer Required: No Allergies No Known Allergies Allergy (Verified 07/23/23 12:37) Medication List - Last Reconciled 07/23/23 by AJKOB Gilbert clonidine HCl 0.3 mg PO DAILY pyridoxine (vitamin B6) 100 mg PO DAILY 90 days HPI HPI Comments History of Present Illness Details Gabriel is a very pleasant 47-year-old male patient of Dr. Sharmila berkowitz. He is being follow-up on today via video telehealth for his longstanding history of nephrolithiasis. In discussion with the patient today reports to be doing and feeling well. Patient discusses his recent workup for hypertension. It appears most recent renal ultrasound that was ordered was ordered with Doppler studies. Patient reports he is following up with PCP and Nephrology. Renal ultrasound results reviewed with the patient today. No calculi noted. When asked he denies any urinary issues at this time. He denies urinary urgency, urinary frequency, incontinence, nocturia, hematuria, dysuria, foul smelling urine, changes to urinary stream, flank pain, fever, and or chills. He is happy with his current voiding parameters. When asked he reports to be drinking plenty of water daily. He reports compliance with vitamin B6 as prescribed. He otherwise offers no other issues or concerns at this time. [facility] Medical History Kidney stones Surgical History History of surgery on lower extremity Family History Mother Colon cancer Social History Household Members: Spouse Housing: House Do you presently have visiting nurse or other home services: No Alcohol intake: never Patient Tobacco Use Status: Never used Tobacco Substance Use Type: Marijuana service: No Current occupational status: employed Review of Systems Const All systems reviewed & are unremarkable except as noted in HPI and below Reports as per HPI Eyes Reports no additional complaints ENT Reports no additional complaints Card Reports as per HPI Resp Reports no additional complaints GI Reports no additional complaints Reports as per HPI Musc Reports no additional complaints Neuro Reports no additional complaints Psych Reports no additional complaints Endo Reports no additional complaints Joo/Lymph Reports no additional complaints Aller/Immun Reports no additional complaints Physical Exam Const General: cooperative, healthy appearing, comfortable, no acute distress, well developed, alert and awake Orientation/consciousness: patient oriented x3 Resp Effort & Inspection: normal respiratory effort and able to speak in complete sentences Neuro General: patient oriented x3 Psych Appearance: grossly normal Mental Status: mental status grossly normal Speech and movement: Clear speech present Affect: normal affect Attitude: cooperative Thought process: Normal thought process present Thought content: Normal thought content present Insight: Good insight present (Psych) Judgement: Good judgement present (Psych) Assessment & Plan Assessment & Plan (1) Kidney stones: Code(s): N20.0 - Calculus of kidney Plan Recent renal imaging results reviewed with the patient today; as noted above. Patient denies any urological issues at this time. Continue to follow with PCP and Nephrology regarding recent hypertension diagnosis and findings on renal Doppler study Educated, encouraged, instructed on the importance of drinking plenty of water daily. Continue adding 1 oz of lemon juice to water daily. Continue vitamin B6 as discussed and prescribed. Renal ultrasound in 1 year. Follow-up in 1 year with imaging to be completed prior; or sooner with any issues, concerns, and or questions. Orders: Orders US renal BI 364 Days N20.0 - Calculus of kidney Patient Instructions: The patient had an opportunity to ask questions regarding the treatment plan. All questions were answered. Physical exam, labs, and imaging were discussed and reviewed in detail. As well as risks, benefits, and discussion of treatment choices. No major barriers to understanding were identified. The patient expressed understanding and agreement with the above treatment plan. The patient was made aware they should contact our office by phone for worsening of their current condition, the appearance of new symptoms, or with any questions or concerns. Compliance is encouraged with any medications and follow up testing that is ordered. It is a privilege to be allowed the opportunity to participate in? your urological care.? Again, if you have any questions or concerns If you have any questions or concerns please do not hesitate to contact me. The office is [phone]. This note is constructed using voice recognition software. While every effort has been made to ensure accuracy digital computer operator errors may have been included. Yours sincerely, [facility] Telehealth Location of provider rendering services: practice address Location of patient: address on file Patient Identification confirmed using: Name, : Yes Telehealth method: voice only Patient verbally consented to treatment: Yes Patient verbally consented to billing insurance company: Yes Patient informed of any privacy concerns related to visit: Yes Minutes spent on Phone/Video with Pt.: 15 Coding Level of Care Code Est Pt Level 3 (80161) Diagnoses Kidney stones N20.0
== END 2023-07-23 12:39 | disposition home or self-care (01) ==
LOC: HO.HUSH 11:48
PROVIDERS: PCP Internal Medicine; Visit Provider Nurse Practitioner Family
DX: N20.0 Calculus of kidney (principal)
CPT/HCPCS: 99213

== ENCOUNTER → 2023-07-23 11:48 | Outpatient (BNVA) | payer MEDICAID, SELFPAY | PROVIDERS: PCP Internal Medicine; Visit Provider Nurse Practitioner Family ==

== ENCOUNTER 2023-08-22 10:56 | Outpatient (REF) | payer MEDICAID, SELFPAY ==
--- NOTE | ~2023-08-22 | CT_ITS ---
EXAMINATION: CT ANGIOGRAM ABDOMEN CLINICAL INFORMATION: Atherosclerosis of renal artery. COMPARISON: Renal Doppler 05/11/2023. TECHNIQUE: Multiple axial images were obtained through the abdomen following the administration of 80 mL Omnipaque 350 intravenous contrast. 3D POSTPROCESSIN-D MIP images were processed from the initial data set by the ambulatory technologist on the technologist workstation under concurrent physician supervision. This CT examination was performed using dose optimization techniques as appropriate, variously including the following: *Automated exposure control *Adjustment of mA and/or kV according to patient size (this includes techniques or standardized protocols for targeted exams where dose is matched to indication/reason for exam; i.e. extremities or head) *Use of iterative reconstruction technique DLP: 127 mGy-cm FINDINGS: The abdominal aorta and proximal common iliac arteries are normal in caliber. There is no demonstrable atherosclerotic disease. The celiac, superior mesenteric, and inferior mesenteric arteries are patent. Single right renal artery is patent. Single left renal artery is patent. The renal artery contours are smooth. No intravascular webs are seen. No convincing evidence of fibromuscular dysplasia or vasculitis. No renal artery aneurysmal disease. The nephrograms are symmetric. The liver is homogeneous. No liver mass or ductal dilatation. Cholelithiasis without evidence of acute cholecystitis. No discrete pancreatic mass. No pancreatic ductal dilatation. Normal size spleen. The adrenal glands appear normal. The and kidneys appear normal. The included segments of small bowel and large bowel are unremarkable. The appendix appears normal. No adenopathy. Mild endplate degenerative changes in the spine. Bilateral pars defects at L4 without listhesis. CT/CT angio abdomen IMPRESSION: No evidence of hemodynamically significant renal artery stenosis. No evidence of vasculitis or fibromuscular dysplasia. Fleischner guidelines were followed.
[2023-08-22] MEDS: iohexoL 350 MG/ML 75 ML INFUS..BTL 80 ML IV (11:18)
== END 2023-08-22 10:57 | disposition home or self-care (01) ==
LOC: HO.CT 10:56
PROVIDERS: PCP Internal Medicine; Visit Provider Physician Assistant
DX: I70.1 Atherosclerosis of renal artery (principal)
CPT/HCPCS: 74175; Q9967

== ENCOUNTER 2024-09-01 08:06 | Outpatient (REF) | payer OTHER, SELFPAY ==
--- NOTE | ~2024-09-01 | US_ITS ---
EXAMINATION: US RETROPERITONEAL LIMITED (RENAL ONLY) CLINICAL INFORMATION: Calculus of kidney. COMPARISON: CTA abdomen 08/22/2023. Renal ultrasound 07/12/2023 and 06/12/2022. TECHNIQUE: Real-time imaging of the kidneys. FINDINGS: RIGHT KIDNEY: 10.1 x 6.1 x 5.3 cm (SAG x AP x TRV). The kidney is normal in size, contour, and echogenicity. Renal cortical thickness is normal. No calculi or focal parenchymal lesions. No hydronephrosis. LEFT KIDNEY: 11.6 x 5.1 x 5.0 cm (SAG x AP x TRV). The kidney is normal in size, contour, and echogenicity. Renal cortical thickness is normal. No calculi or focal parenchymal lesions. No hydronephrosis. US/US renal BI IMPRESSION: Negative exam with no renal calculi seen. Calculi were also not seen on the 08/22/2023 CT scan. Electronically signed by: Leland Buenrostro MD 09/23/2024 06:44 PM EST
== END 2024-09-01 08:07 | disposition home or self-care (01) ==
LOC: HO.HMGCX 08:06
PROVIDERS: PCP Internal Medicine; Visit Provider Nurse Practitioner Family
DX: N20.0 Calculus of kidney (principal)
CPT/HCPCS: 76775

== ENCOUNTER 2024-09-15 15:57 | Outpatient (AMB) | payer OTHER, SELFPAY ==
--- NOTE | 2024-09-15 16:00 | A.OFFVIS_ITS ---
Intake Visit Reasons: 1y/US(set) Intake Note: Patient presents today follow up on: kidney stone and ultrasound results Imaging Completed: 08/29/24 Urology Medications: Vitamin B6 Blood Thinner: none Sharepoint Administrator Required: No Accompanied by: Self / Same As Patient Allergies No Known Allergies Allergy (Verified 09/15/24 18:07) Medication List - Last Reconciled 09/15/24 by JAKOB Gilbert losartan 50 mg PO BID HPI Comments Details: Gabriel is a very pleasant 48-year-old male patient of Dr. Rincon. He presents to the office today for follow-up of his longstanding history of nephrolithiasis. In discussion with the patient today he reports to be doing and feeling well. Denies having had any bothersome urinary issues since his last office visit here. Recent renal imaging results reviewed with the patient today. Bilateral kidneys with no calculi, lesions, and or hydronephrosis. When asked he denies any urinary issues at this time. He denies urinary urgency, urinary frequency, incontinence, nocturia, hematuria, dysuria, foul smelling urine, changes to urinary stream, flank pain, fever, and or chills. He is happy with his current voiding parameters. When asked he reports to be drinking plenty of water daily approximately 2-2.5 L a day. He reports compliance with vitamin B6 as prescribed. He reports having followed up with his PCP for ongoing borderline hypogonadism, fatigue, and low libido and is enquiring further workup. He otherwise offers no other issues or concerns at this time. [facility] Medical History Kidney stones Surgical History History of surgery on lower extremity Family History Mother Colon cancer Social History Household Members: Spouse Housing: House Do you presently have visiting nurse or other home services: No Alcohol intake: never Patient Tobacco Use Status: Never used Tobacco Substance Use Type: Marijuana service: No Current occupational status: employed Review of Systems Const All systems reviewed & are unremarkable except as noted in HPI and below Reports as per HPI Eyes Reports no additional complaints ENT Reports no additional complaints Card Reports as per HPI Resp Reports no additional complaints GI Reports no additional complaints Reports as per HPI Musc Reports no additional complaints Neuro Reports no additional complaints Psych Reports no additional complaints Endo Reports no additional complaints Joo/Lymph Reports no additional complaints Aller/Immun Reports no additional complaints Physical Exam Const General: cooperative, healthy appearing, comfortable, no acute distress, well developed, alert and awake Orientation/consciousness: patient oriented x3 Limitations: no limitations HEENT Head: Yes normal to inspection, Yes normocephalic and Yes atraumatic Ears: hearing grossly normal bilaterally Eyes General: appearance normal, both eyes and all related structures Neck Neck: Yes normal visual inspection and Yes trachea midline Chest Chest palpation & inspection: normal inspection of the chest Resp Effort & Inspection: normal respiratory effort and able to speak in complete sentences Cardio Rate: regular rate GI Inspection: Yes normal to inspection General: Yes no CVA tenderness Back/Spine/Pelvis Back: no CVA tenderness Skin General skin exam: no rashes or lesions noted Neuro General: patient oriented x3 Extrem General: Yes normal to inspection Psych Appearance: grossly normal and well kempt Mental Status: mental status grossly normal Speech and movement: Normal speech and movement present and Clear speech present Affect: normal affect Attitude: cooperative Thought process: Normal thought process present Thought content: Normal thought content present Insight: Fair insight present (Psych) Judgement: Fair judgement present (Psych) Results AMB Urinalysis, Automated UA Leukoctes 0 Torito/uL Last Edit by BrockKlashtracy Campos on 09/15/24 16:29 UA Nitrite Last Edit by Baldev Campos on 09/15/24 16:29 UA Urobilinogen 0.2 mg/dL Last Edit by BrockKlashtracy Campos on 09/15/24 16:29 UA Protein 0 mg/dL Last Edit by BrockKlashtracy Campos on 09/15/24 16:29 UA pH 6.0 Last Edit by Baldev Campos on 09/15/24 16:29 UA Blood 0 Twan/uL Last Edit by Baldev Campos on 09/15/24 16:29 UA Specific Winston 1.030 Last Edit by Baldev Campos on 09/15/24 16:29 UA Ketone Last Edit by Baldev Campos on 09/15/24 16:29 UA Bilirubin 0 mg/dL Last Edit by Baldev Campos on 09/15/24 16:29 UA Glucose 0 mg/dL Last Edit by Baldev Campos on 09/15/24 16:29 Results Reviewed Results Reviewed: Laboratory Last Values Urine pH (Auto) 6.0 09/15/24 16:28 Specific Winston (Auto) 1.030 09/15/24 16:28 Urine Protein (Auto) 0 mg/dL 09/15/24 16:28 Glucose (UA)(Auto) 0 mg/dL 09/15/24 16:28 Urine Blood (Auto) 0 Twan/uL 09/15/24 16:28 Urine Bilirubin (Auto) 0 mg/dL 09/15/24 16:28 Urine Urobilinogen (Auto) 0.2 mg/dL 09/15/24 16:28 Leukocyte Esterase (Auto) 0 Torito/uL 09/15/24 16:28 Date of Service: 09/01/24 EXAMINATION: US RETROPERITONEAL LIMITED (RENAL ONLY) FINDINGS: RIGHT KIDNEY: 10.1 x 6.1 x 5.3 cm (SAG x AP x TRV). The kidney is normal in size, contour, and echogenicity. Renal cortical thickness is normal. No calculi or focal parenchymal lesions. No hydronephrosis. LEFT KIDNEY: 11.6 x 5.1 x 5.0 cm (SAG x AP x TRV). The kidney is normal in size, contour, and echogenicity. Renal cortical thickness is normal. No calculi or focal parenchymal lesions. No hydronephrosis. IMPRESSION: Negative exam with no renal calculi seen. Calculi were also not seen on the 08/22/2023 CT scan. Assessment & Plan Assessment & Plan (1) Kidney stones: Code(s): N20.0 - Calculus of kidney Category: Medical (2) Low libido: Code(s): R68.82 - Decreased libido Category: Medical (3) Fatigue: Code(s): R53.83 - Other fatigue Category: Medical Plan Recent renal imaging results reviewed with the patient today; as noted above. Continue drinking plenty of water daily as discussed. Stop vitamin B6 as discussed. Will obtain further hypogonadism labs (prolactin, FSH, LH, estradiol, testostero ne free and total, testosterone, and SHBG) Discussed lifestyle modifications to assist with low libido, fatigue, and for overall health and well-being. Follow-up in 1-3 months with labs to be completed prior; or sooner with any issues, concerns, and or questions. Orders: Orders AMB Urinalysis Automated 09/15/24 Z13.9 - Encounter for screening, unspecified Prolactin 09/15/24 R53.83 - Other fatigue, R68.82 - Decreased libido Follicle Stimulating Hormone 09/15/24 R53.83 - Other fatigue, R68.82 - Decreased libido Testosterone, Free/Total 09/15/24 R53.83 - Other fatigue, R68.82 - Decreased libido Estradiol Ultra Sensitive 09/15/24 R68.82 - Decreased libido, R53.83 - Other fatigue Sex Hormone Binding Globulin 09/15/24 R53.83 - Other fatigue, R68.82 - D ecreased libido Medications: Discontinued pyridoxine (vitamin B6) Discontinued Reason: Doctor's Order 100 mg PO DAILY 90 days 90 tabs 1RF N20.0 - Calculus of kidney Patient Instructions: The patient had an opportunity to ask questions regarding the treatment plan. All questions were answered. Physical exam, labs, and imaging were discussed and reviewed in detail. As well as risks, benefits, and discussion of treatment choices. No major barriers to understanding were identified. The patient expressed understanding and agreement with the above treatment plan. The patient was made aware they should contact our office by phone for worsening of their current condition, the appearance of new symptoms, or with any questions or concerns. Compliance is encouraged with any medications and follow up testing that is ordered. It is a privilege to be allowed the opportunity to participate in? your urological care.? Again, if you have any questions or concerns If you have any questions or concerns please do not hesitate to contact me. The office is [phone]. This note is constructed using voice recognition software. While every effort has been made to ensure accuracy catalyst supervisor errors may have been included. Yours sincerely, Leticia Alston AERIAL ADVERTISER- Coding Level of Care Code Est Pt Level 3 (89249) Diagnoses Kidney stones N20.0 Low libido R68.82 Fatigue R53.83
== END 2024-09-15 16:28 | disposition home or self-care (01) ==
PROVIDERS: PCP Internal Medicine; Visit Provider Nurse Practitioner Family
DX: N20.0 Calculus of kidney (principal); R68.82 Decreased libido; R53.83 Other fatigue
CPT/HCPCS: 99213

== ENCOUNTER → 2024-09-15 15:57 | Outpatient (BNVA) | payer OTHER, SELFPAY | PROVIDERS: PCP Internal Medicine; Visit Provider Nurse Practitioner Family | DX: N20.0 Calculus of kidney (principal); R68.82 Decreased libido; R53.83 Other fatigue | CPT/HCPCS: 81003 ==